=== PATIENT | male | born 1930 | race Caucasian/White ===

== ENCOUNTER 2018-06-29 11:59 | Inpatient (IN) | payer MEDICARE ==
[~2018-06-29] VITALS: Ht 167.6 cm; Wt 77.6 kg
[2018-06-29 12:06] VITALS: BP 118/55
--- NOTE | 2018-06-29 12:06 | NUR ---
ED Nurse Note: PT BROUGHT IN BY R41 DUE TO WITNESSED SYNCOPAL EPISODE X 30 MINS AGO. PER SON WHO WITNESSED SYNCOPAL EPISODE, PT DID NOT HAVE ANY HEAD TRAUMA. +LOC FOR ABOUT 4 MINS. Patient's son reports of guiding the patient down, denies any head trauma. patient's son witnessed the fall and states that the patient suffered weakness, Blood sugar of 157.
[2018-06-29 12:20] LABS: BASOPHILS % (AUTO) 0.6 % (0.0-2.0); EOSINOPHILS % (AUTO) 0.8 % (0.0-3.0); HEMATOCRIT 44.5 % (42.0-52.0); HEMOGLOBIN 14.8 G/DL (14.2-18.0); LYMPHOCYTES % (AUTO) 22.5 % (20.0-45.0); MEAN CORPUSCULAR VOLUME 86 FL (80-99); MONOCYTES % (AUTO) 5.2 % (1.0-10.0); NEUTROPHILS % (AUTO) 70.9 % (45.0-75.0); PLATELET COUNT 188 K/UL (150-450); RED CELL DISTRIBUTION WIDTH 13.4 % (11.6-14.8); WHITE BLOOD COUNT 8.8 K/UL (4.8-10.8)
--- NOTE | 2018-06-29 12:26 | NUR ---
ED Nurse Note: cxr taken, patient went down for CT.
[2018-06-29 12:33] LABS: INR 1.1 (0.9-1.1)
--- NOTE | 2018-06-29 12:39 | Diagnostic Imaging Report ---
Indication: Syncope Technique: One view of the chest Comparison: none Findings: A calcite granulomas seen at the right lung base. There is a massive hiatal hernia. The left hemidiaphragm is obscured. The lungs and pleural spaces are otherwise clear. The heart is enlarged Impression: Massive hiatal hernia Obscured left hemidiaphragm. This is likely due to the presence of a hiatal hernia, but pleural and/or parenchymal disease at the left lung base also possible. 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
[2018-06-29 12:49] LABS: ANION GAP 9 mmol/L (5-15); BLOOD UREA NITROGEN 25 mg/dL (7-18); CALCIUM 8.9 MG/DL (8.5-10.1); CARBON DIOXIDE 26 MMOL/L (21-32); CHLORIDE 102 MMOL/L (98-107); CREATININE 1.9 MG/DL (0.55-1.30); POTASSIUM 3.9 MMOL/L (3.5-5.1); SODIUM 137 MMOL/L (136-145)
[2018-06-29 13:03] LABS: ALANINE AMINOTRANSFERASE 26 U/L (12-78); ALBUMIN 3.4 G/DL (3.4-5.0); ALBUMIN/GLOBULIN RATIO 0.9 (1.0-2.7); ALKALINE PHOSPHATASE 56 U/L (46-116); ASPARTATE AMINO TRANSFERASE 22 U/L (15-37); BILIRUBIN,TOTAL 0.7 MG/DL (0.2-1.0); CKMB 2.2 NG/ML (0.0-3.6); CREATINE KINASE 91 U/L (26-308)
--- NOTE | 2018-06-29 13:20 | NUR ---
ED Nurse Note: urine sent down to lab
--- NOTE | 2018-06-29 13:23 | Diagnostic Imaging Report ---
Indications: Syncope Technique: Spiral acquisitions obtained through the brain. Angled axial and coronal 5 x 5 mm slices were reconstructed. Total dose length product 1407.76 mGycm. CTDI vol(s) 70.38 mGy. Dose reduction achieved using automated exposure control Comparison: None. Findings: There is age-related enlargement of the ventricles and extra axial CSF spaces. There is periventricular deep white matter low-attenuation, consistent with chronic ischemic change. Old lacunar infarct is seen within the manish the left of midline. There is also encephalomalacia of the left brachium pontis, consistent with old infarct No acute intracranial hemorrhage nor edema, mass effect, nor midline shift. Otherwise normal velasquez-white differentiation. There is evidence of prior bilateral cataract surgery. There is opacification of the left sphenoid sinus. Impression: Chronic and age-related changes. 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
[2018-06-29 13:25] LABS: APPEARANCE,URINE CLEAR; BILIRUBIN, URINE NEGATIVE (NEGATIVE); COLOR,URINE PALE YELLOW; GLUCOSE, URINE (UA) NEGATIVE (NEGATIVE); KETONES,URINE NEGATIVE (NEGATIVE); LEUKOCYTE ESTERASE ,URINE NEGATIVE (NEGATIVE); NITRITE,URINE NEGATIVE (NEGATIVE); PH,URINE 6 (4.5-8.0); PROTEIN,URINE 2+ (NEGATIVE); UROBILINOGEN,URINE NORMAL MG/DL (0.0-1.0)
[2018-06-29 13:37] VITALS: BP 161/57
[2018-06-29] MEDS ORDERED: LORazepam Inj 2mg/ml 1ml IV PRN (14:30)
[2018-06-29] MEDS ORDERED: Mylanta II UD 30ml ORAL PRN (14:30)
[2018-06-29] MEDS ORDERED: Morphine Sulfate 2mg/ml Inj(IV/IM USE ONLY) IVP PRN (14:30)
[2018-06-29] MEDS ORDERED: Nitroglycerin Subl 0.4mg tab SL PRN (14:30)
[2018-06-29] MEDS ORDERED: Albuterol/Ipratropium 3ml neb HHN PRN (14:30)
--- NOTE | 2018-06-29 14:41 | Emergency Room Report ---
History of Present Illness General Chief Complaint: Syncope Source: Patient Present Illness HPI 87-year-old male presents ED status post syncopal episode. Run in by EMS. Son at bedside states that he witnessed patient have syncopal episode while using walker. Assisted patient to the ground. There is no head injury. Patient was initially altered but is now at baseline. Patient denies any headache. Denies any chest pain or shortness of breath. Son states patient has history of A. fib. Takes Xarelto. Has recent diagnosis of Parkinson's. 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 No other aggravating relieving factors. Denies any other associated symptoms Allergies: Coded Allergies: No Known Allergies (Unverified , 06/29/18) Patient History Past Medical History: AFib, other - parkinsons Past Surgical History: none Pertinent Family History: none Social History: Denies: smoking, alcohol use, drug use Immunizations: UTD Reviewed Nursing Documentation: PMH: Agreed; PSxH: Agreed Nursing Documentation-PMH Past Medical History: No History, Except For Hx Cardiac Problems: Yes - A-FIB Hx Neurological Problems: Yes - PARKINSON'S Hx Cerebrovascular Accident: Yes - 2018 Review of Systems All Other Systems: negative except mentioned in HPI Physical Exam Vital Signs Date Time Temp Pulse Resp B/P (MAP) Pulse Ox O2 Delivery O2 Flow Rate FiO2 06/29/18 11:56 97.3 160 18 118/55 96 Room Air Sp02 EP Interpretation: reviewed, normal General Appearance: no apparent distress, alert, GCS 15, non-toxic Head: normocephalic, atraumatic Eyes: bilateral eye normal inspection, bilateral eye PERRL ENT: hearing grossly normal, normal pharynx, no angioedema, normal voice Neck: full range of motion, supple/symm/no masses Respiratory: chest non-tender, lungs clear, normal breath sounds, speaking full sentences Cardiovascular #1: regular rate, rhythm, no edema Cardiovascular #2: 2+ carotid (R), 2+ carotid (L), 2+ radial (R), 2+ radial (L) , 2+ dorsalis pedis (R), 2+ dorsalis pedis (L) Gastrointestinal: normal bowel sounds, non tender, soft, non-distended, no guarding, no rebound Rectal: deferred Genitourinary: normal inspection, no CVA tenderness Musculoskeletal: back normal, gait/station normal, normal range of motion, non- tender Neurologic: alert, oriented x3, responsive, motor strength/tone normal, sensory intact, speech normal Psychiatric: judgement/insight normal, memory normal, mood/affect normal, no suicidal/homicidal ideation Reflexes: 3+ bicep (R), 3+ bicep (L), 3+ tricep (R), 3+ tricep (L), 3+ knee (R) , 3+ knee (L) Skin: normal color, no rash, warm/dry, well hydrated Lymphatic: no adenopathy Medical Decision Making Diagnostic Impression: Primary Impression: Syncope Qualified Codes: R55 - Syncope and collapse Additional Impression: Renal insufficiency ER Course Hospital Course 87-year-old M presents ED s/p syncopal episode. Differential diagnoses include: IL/unstable angina, arrythmia, dehydration, CVA/ TIA Clinical course Patient placed on stretcher. 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 After initial history and physical I ordered labs, EKG, chest x-ray, IVFs, CT Brain labs reviewed- no leukocytosis, hemoglobin/hematocrit ok, BUN/Cr elevated, trop negative EKG- sinus bradycardia, LVH, repolarization abnormality Chest x-ray- no acute process CT brain-unremarkable discussed case with Dr. Chucky Falcon (cardiology) and Dr Dallas Sun ( neurology) at [facility] Case discussed with Dr. Sanders and he agreed to accept the patient to his service for further care and support I. I feel this is a highly complex case requiring extensive working including EKG/Rhythm strip, Xray/CT/US, Blood/urine lab work, repeat exams while in ED, and administration of strong opiates/narcotics for pain control, admission to hospital or close patient follow up. Diagnosis - syncope, renal insufficiency admitted to telemetry in serious condition Labs Test 06/29/18 12:00 06/29/18 13:12 White Blood Count 8.8 K/UL (4.8-10.8) Red Blood Count 5.20 M/UL (4.70-6.10) Hemoglobin 14.8 G/DL (14.2-18.0) Hematocrit 44.5 % (42.0-52.0) Mean Corpuscular Volume 86 FL (80-99) Mean Corpuscular Hemoglobin 28.5 PG (27.0-31.0) Mean Corpuscular Hemoglobin Concent 33.3 G/DL (32.0-36.0) Red Cell Distribution Width 13.4 % (11.6-14.8) Platelet Count 188 K/UL (150-450) Mean Platelet Volume 9.5 FL (6.5-10.1) Neutrophils (%) (Auto) 70.9 % (45.0-75.0) Lymphocytes (%) (Auto) 22.5 % (20.0-45.0) Monocytes (%) (Auto) 5.2 % (1.0-10.0) Eosinophils (%) (Auto) 0.8 % (0.0-3.0) Basophils (%) (Auto) 0.6 % (0.0-2.0) Prothrombin Time 11.4 SEC (9.30-11.50) Prothromb Time International Ratio 1.1 (0.9-1.1) Activated Partial Thromboplast Time 28 SEC (23-33) Sodium Level 137 MMOL/L (136-145) Potassium Level 3.9 MMOL/L (3.5-5.1) Chloride Level 102 MMOL/L (98-107) Carbon Dioxide Level 26 MMOL/L (21-32) Anion Gap 9 mmol/L (5-15) Blood Urea Nitrogen 25 mg/dL (7-18) Creatinine 1.9 MG/DL (0.55-1.30) Estimat Glomerular Filtration Rate mL/min (>60) Glucose Level 154 MG/DL (74-106) Calcium Level 8.9 MG/DL (8.5-10.1) Total Bilirubin 0.7 MG/DL (0.2-1.0) Aspartate Amino Transf (AST/SGOT) 22 U/L (15-37) Alanine Aminotransferase (ALT/SGPT) 26 U/L (12-78) Alkaline Phosphatase 56 U/L (46-116) Total Creatine Kinase 91 U/L (26-308) Creatine Kinase MB 2.2 NG/ML (0.0-3.6) Creatine Kinase MB Relative Index 2.4 Troponin I 0.018 ng/mL (0.000-0.056) Pro-B-Type Natriuretic Peptide 1604 pg/mL (0-125) Total Protein 7.2 G/DL (6.4-8.2) Albumin 3.4 G/DL (3.4-5.0) Globulin 3.8 g/dL Albumin/Globulin Ratio 0.9 (1.0-2.7) Urine Color Pale yellow Urine Appearance Clear Urine pH 6 (4.5-8.0) Urine Specific [place] 1.010 (1.005-1.035) Urine Protein 2+ (NEGATIVE) Urine Glucose (UA) Negative (NEGATIVE) Urine Ketones Negative (NEGATIVE) Urine Blood Negative (NEGATIVE) Urine Nitrite Negative (NEGATIVE) Urine Bilirubin Negative (NEGATIVE) Urine Urobilinogen Normal MG/DL (0.0-1.0) Urine Leukocyte Esterase Negative (NEGATIVE) Urine RBC 0-2 /HPF (0 - 0) Urine WBC 0-2 /HPF (0 - 0) Urine Squamous Epithelial Cells Occasional /LPF Urine Bacteria Occasional /HPF (NONE) Urine Hyaline Casts 0-2 /LPF (NONE) Urine Coarse Granular Casts 0-2 /LPF (NONE) EKG Diagnostic Results Rate: normal Rhythm: NSR ST Segments: no acute changes ASA given to the pt in ED: No Rhythm Strip Diag. Results EP Interpretation: yes Rhythm: NSR, no PVC's, no ectopy Chest X-Ray Diagnostic Results Chest X-Ray Diagnostic Results : Chest X-Ray Ordered: Yes # of Views/Limited/Complete: 1 View Indication: Other Interpretation: no consolidation, no effusion, no pneumothorax, no acute cardiopulmonary disease Impression: No acute disease - Electronically signed by Shamir Rodriguez MD Electronically Signed by: Electronically signed by Shamir Rodriguez MD CT/MRI/US Diagnostic Results CT/MRI/US Diagnostic Results : Imaging Test Ordered: CT Head Impression no acute process Last Vital Signs Date Time Temp Pulse Resp B/P (MAP) Pulse Ox O2 Delivery O2 Flow Rate FiO2 06/29/18 13:37 97.3 51 18 161/57 99 Room Air Status: improved Disposition: ADMITTED INPATIENT Condition: Serious Referrals: NON PHYSICIAN (PCP) Shamir Rodriguez MD Jun 29, 2018 14:41
[2018-06-29] MEDS ORDERED: SINEMET 25-1001 EAC1 ORAL (14:45)
[2018-06-29] MEDS ORDERED: BYSTOLIC2.5 MG ORAL (14:45)
[2018-06-29] MEDS ORDERED: MIRTAZAPINE15 M3 ORAL (14:45)
[2018-06-29] MEDS ORDERED: METOCLOPRA10 MG/10 M ORAL (14:45)
[2018-06-29] MEDS ORDERED: CATAPRES0.1 MG ORAL (14:45)
[2018-06-29] MEDS ORDERED: LOSARTAN POTASS50 MG ORAL (14:45)
[2018-06-29] MEDS ORDERED: CRESTOR20 MG ORAL (14:46)
[2018-06-29] MEDS ORDERED: NEXIUM40 MG ORAL (14:46)
[2018-06-29] MEDS ORDERED: XARELTO10 MG ORAL (14:46)
--- NOTE | 2018-06-29 14:50 | NUR ---
ED Nurse Note: attempted to give report to Bladimir GLOVER at 2E, nurse unable to take the report because the nurse still has 4 patients.
--- NOTE | 2018-06-29 15:41 | Consultation ---
History of Present Illness General Date patient seen: Jun 29, 2018 Chief Complaint: Syncope Present Illness HPI 87-year-old male with hx of AFib, on Xarelto, Parkinson presented to ED aften an episode of syncopal episode. Pts son on at bedside stated that he witnessed patient have syncopal episode while using walker. Assisted patient to the ground. There is no head injury. Patient was initially altered but is now at baseline. Patient denies any headache. Denies any chest pain or shortness of breath. Pt is admitted to telemetry for further management. Allergies: Coded Allergies: No Known Allergies (Unverified , 06/29/18) Medication History Scheduled Carbidopa/Levodopa 25-100 Mg* (Sinemet 25-100 Mg Tablet*), 1 TAB ORAL THREE TIMES A DAY, (Reported) Clonidine Hcl* (Catapres*), 0.1 MG ORAL EVERY 12 HOURS, (Reported) Esomeprazole Magnesium (Nexium), 40 MG ORAL DAILY, (Reported) Losartan Potassium* (Losartan Potassium*), 50 MG ORAL DAILY, (Reported) Metoclopramide Hcl* (Metoclopramide Hcl*), 10 MG ORAL EVERY 6 HOURS, (Reported) Mirtazapine* (Mirtazapine*), 15 MG ORAL BEDTIME, (Reported) Nebivolol Hcl* (Bystolic*), 5 MG ORAL DAILY, (Reported) Rivaroxaban (Xarelto*), 15 MG ORAL DAILY, (Reported) Rosuvastatin Calcium* (Crestor*), 20 MG ORAL DAILY, (Reported) Patient History Healthcare decision maker Resuscitation status Advanced Directive on File Past Medical/Surgical History Past Medical/Surgical History: (1) Chronic anticoagulation (2) Parkinson disease (3) Cardiomegaly Review of Systems All Other Systems: negative except mentioned in HPI Physical Exam General Appearance: WD/WN Lines, tubes and drains: peripheral HEENT: normocephalic, atraumatic Neck: non-tender, normal alignment Breasts: no masses Cardiovascular/Chest: normal peripheral pulses Abdomen: normal bowel sounds, non tender Genitourinary/Rectal: normal genital exam Extremities: normal range of motion, non-tender Skin Exam: normal pigmentation 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 Last 24 Hour Vital Signs Date Time Temp Pulse Resp B/P (MAP) Pulse Ox O2 Delivery O2 Flow Rate FiO2 06/29/18 13:37 97.3 51 18 161/57 99 Room Air 06/29/18 12:06 97.3 56 18 118/55 96 Room Air 06/29/18 11:56 97.3 160 18 118/55 96 Room Air Laboratory Tests Test 06/29/18 12:00 06/29/18 13:12 White Blood Count 8.8 K/UL (4.8-10.8) Red Blood Count 5.20 M/UL (4.70-6.10) Hemoglobin 14.8 G/DL (14.2-18.0) Hematocrit 44.5 % (42.0-52.0) Mean Corpuscular Volume 86 FL (80-99) Mean Corpuscular Hemoglobin 28.5 PG (27.0-31.0) Mean Corpuscular Hemoglobin Concent 33.3 G/DL (32.0-36.0) Red Cell Distribution Width 13.4 % (11.6-14.8) Platelet Count 188 K/UL (150-450) Mean Platelet Volume 9.5 FL (6.5-10.1) Neutrophils (%) (Auto) 70.9 % (45.0-75.0) Lymphocytes (%) (Auto) 22.5 % (20.0-45.0) Monocytes (%) (Auto) 5.2 % (1.0-10.0) Eosinophils (%) (Auto) 0.8 % (0.0-3.0) Basophils (%) (Auto) 0.6 % (0.0-2.0) Prothrombin Time 11.4 SEC (9.30-11.50) Prothromb Time International Ratio 1.1 (0.9-1.1) Activated Partial Thromboplast Time 28 SEC (23-33) Sodium Level 137 MMOL/L (136-145) Potassium Level 3.9 MMOL/L (3.5-5.1) Chloride Level 102 MMOL/L (98-107) Carbon Dioxide Level 26 MMOL/L (21-32) Anion Gap 9 mmol/L (5-15) Blood Urea Nitrogen 25 mg/dL (7-18) H Creatinine 1.9 MG/DL (0.55-1.30) H Estimat Glomerular Filtration Rate mL/min (>60) Glucose Level 154 MG/DL (74-106) H Calcium Level 8.9 MG/DL (8.5-10.1) Total Bilirubin 0.7 MG/DL (0.2-1.0) Aspartate Amino Transf (AST/SGOT) 22 U/L (15-37) Alanine Aminotransferase (ALT/SGPT) 26 U/L (12-78) Alkaline Phosphatase 56 U/L (46-116) Total Creatine Kinase 91 U/L (26-308) Creatine Kinase MB 2.2 NG/ML (0.0-3.6) Creatine Kinase MB Relative Index 2.4 Troponin I 0.018 ng/mL (0.000-0.056) Pro-B-Type Natriuretic Peptide 1604 pg/mL (0-125) H Total Protein 7.2 G/DL (6.4-8.2) Albumin 3.4 G/DL (3.4-5.0) Globulin 3.8 g/dL Albumin/Globulin Ratio 0.9 (1.0-2.7) L Urine Color Pale yellow Urine Appearance Clear Urine pH 6 (4.5-8.0) Urine Specific [place] 1.010 (1.005-1.035) Urine Protein 2+ (NEGATIVE) H Urine Glucose (UA) Negative (NEGATIVE) Urine Ketones Negative (NEGATIVE) Urine Blood Negative (NEGATIVE) Urine Nitrite Negative (NEGATIVE) Urine Bilirubin Negative (NEGATIVE) Urine Urobilinogen Normal MG/DL (0.0-1.0) Urine Leukocyte Esterase Negative (NEGATIVE) Urine RBC 0-2 /HPF (0 - 0) H Urine WBC 0-2 /HPF (0 - 0) Urine Squamous Epithelial Cells Occasional /LPF Urine Bacteria Occasional /HPF (NONE) Urine Hyaline Casts 0-2 /LPF (NONE) H Urine Coarse Granular Casts 0-2 /LPF (NONE) H Height (Feet): 5 Height (Inches): 9.00 Weight (Pounds): 170 Medications Current Medications Medications (Trade) Dose Ordered Sig/Sunni Route PRN Reason Start Time Stop Time Status Last Admin Dose Admin Acetaminophen (Tylenol) 650 mg Q4H PRN ORAL fever 06/29/18 14:30 07/29/18 14:29 Al Hydroxide/Mg Hydroxide (Mylanta II) 30 ml Q6H PRN ORAL dyspepsia 06/29/18 14:30 07/29/18 14:29 Albuterol/ Ipratropium (Albuterol/ Ipratropium) 3 ml Q4H PRN HHN Shortness of Breath 06/29/18 14:30 07/04/18 14:29 Clonidine HCl (Catapres Tab) 0.1 mg Q4H PRN ORAL For High Blood Pressure 06/29/18 14:30 07/29/18 14:29 Dextrose (Dextrose 50%) 25 ml Q30M PRN IV Hypoglycemia 06/29/18 14:30 07/29/18 14:29 Dextrose (Dextrose 50%) 50 ml Q30M PRN IV Hypoglycemia 06/29/18 14:30 07/29/18 14:29 Heparin Sodium (Porcine) (Heparin 5000 units/ml) 5,000 units EVERY 12 HOURS SUBQ 06/29/18 21:00 07/29/18 20:59 Lorazepam (Ativan 2mg/ml 1ml) 0.5 mg Q4H PRN IV For Anxiety 06/29/18 14:30 07/06/18 14:29 Morphine Sulfate (Morphine Sulfate) 1 mg Q4H PRN IVP For Pain 7-06/29/18 14:30 07/06/18 14:29 Nitroglycerin (Ntg) 0.4 mg Q5M X 3 DOSES PRN SL Prn Chest Pain 06/29/18 14:30 07/29/18 14:29 Ondansetron HCl (Zofran) 4 mg Q6H PRN IVP Nausea & Vomiting 06/29/18 14:30 07/29/18 14:29 Polyethylene Glycol (Miralax) 17 gm HSPRN PRN ORAL Constipation 06/29/18 14:30 07/29/18 14:29 Temazepam (Restoril) 15 mg HSPRN PRN ORAL Insomnia 06/29/18 14:30 07/06/18 14:29 Assessment/Plan Problem List: (1) Acute encephalopathy ICD Codes: G93.40 - Encephalopathy, unspecified SNOMED: 64278145, 443560158 (2) ATN (acute tubular necrosis) ICD Codes: N17.0 - Acute kidney failure with tubular necrosis SNOMED: 53357807 (3) Cardiomegaly ICD Codes: I51.7 - Cardiomegaly SNOMED: 5640721 (4) Parkinson disease ICD Codes: G20 - Parkinson's disease SNOMED: 36968281 (5) Chronic anticoagulation ICD 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 Petey De La Torre MD Jun 29, 2018 15:41
--- NOTE | 2018-06-29 15:48 | NUR ---
ED Nurse Note: patient is being transferred to with all his belonings, his at his new room, 209-1. Endorsed all care to Bladimir GLOVER
--- NOTE | 2018-06-29 15:50 | NUR ---
NURSE NOTES: Received report from BELEN Spears. Patient transferred from ER with Dejuan, able to walk to hospital bed. Belonging list checked with RN, registered nurse cardiac on, IV on right AC 18G, asymptomatic, patent, intact. Brathing unlabored in Room air. Bed in lowest position, side rails upx2, call light and bes side table within reach. Will continue to monitor.
[2018-06-29 16:00] VITALS: BP 129/65
--- NOTE | 2018-06-29 17:27 | History & Physical ---
History and Physical History & Physicial Dictated for Int Med-Dr Sadners no. [id number]. Jason Mendez MD Jun 29, 2018 17:27
[2018-06-29 17:30] LABS: CREATINE KINASE 74 U/L (26-308)
--- NOTE | 2018-06-29 18:29 | Cardiac Electrophysiology PN ---
Subjective Subjective [id number] Objective Last 24 Hour Vital Signs Date Time Temp Pulse Resp B/P (MAP) Pulse Ox O2 Delivery O2 Flow Rate FiO2 06/29/18 16:00 97.1 60 18 129/65 (86) 95 06/29/18 15:49 97.3 51 18 161/57 99 Room Air 06/29/18 15:30 Room Air 06/29/18 13:37 97.3 51 18 161/57 99 Room Air 06/29/18 12:06 97.3 56 18 118/55 96 Room Air 06/29/18 11:56 97.3 160 18 118/55 96 Room Air Laboratory Tests Test 06/29/18 12:00 06/29/18 13:12 06/29/18 16:50 White Blood Count 8.8 K/UL (4.8-10.8) Red Blood Count 5.20 M/UL (4.70-6.10) Hemoglobin 14.8 G/DL (14.2-18.0) Hematocrit 44.5 % (42.0-52.0) Mean Corpuscular Volume 86 FL (80-99) Mean Corpuscular Hemoglobin 28.5 PG (27.0-31.0) Mean Corpuscular Hemoglobin Concent 33.3 G/DL (32.0-36.0) Red Cell Distribution Width 13.4 % (11.6-14.8) Platelet Count 188 K/UL (150-450) Mean Platelet Volume 9.5 FL (6.5-10.1) Neutrophils (%) (Auto) 70.9 % (45.0-75.0) Lymphocytes (%) (Auto) 22.5 % (20.0-45.0) Monocytes (%) (Auto) 5.2 % (1.0-10.0) Eosinophils (%) (Auto) 0.8 % (0.0-3.0) Basophils (%) (Auto) 0.6 % (0.0-2.0) Prothrombin Time 11.4 SEC (9.30-11.50) Prothromb Time International Ratio 1.1 (0.9-1.1) Activated Partial Thromboplast Time 28 SEC (23-33) Sodium Level 137 MMOL/L (136-145) Potassium Level 3.9 MMOL/L (3.5-5.1) Chloride Level 102 MMOL/L (98-107) Carbon Dioxide Level 26 MMOL/L (21-32) Anion Gap 9 mmol/L (5-15) Blood Urea Nitrogen 25 mg/dL (7-18) H Creatinine 1.9 MG/DL (0.55-1.30) H Estimat Glomerular Filtration Rate mL/min (>60) Glucose Level 154 MG/DL (74-106) H Calcium Level 8.9 MG/DL (8.5-10.1) Total Bilirubin 0.7 MG/DL (0.2-1.0) Aspartate Amino Transf (AST/SGOT) 22 U/L (15-37) Alanine Aminotransferase (ALT/SGPT) 26 U/L (12-78) Alkaline Phosphatase 56 U/L (46-116) Total Creatine Kinase 91 U/L (26-308) 74 U/L (26-308) Creatine Kinase MB 2.2 NG/ML (0.0-3.6) Creatine Kinase MB Relative Index 2.4 Troponin I 0.018 ng/mL (0.000-0.056) Pro-B-Type Natriuretic Peptide 1604 pg/mL (0-125) H Total Protein 7.2 G/DL (6.4-8.2) Albumin 3.4 G/DL (3.4-5.0) Globulin 3.8 g/dL Albumin/Globulin Ratio 0.9 (1.0-2.7) L Urine Color Pale yellow Urine Appearance Clear Urine pH 6 (4.5-8.0) Urine Specific [place] 1.010 (1.005-1.035) Urine Protein 2+ (NEGATIVE) H Urine Glucose (UA) Negative (NEGATIVE) Urine Ketones Negative (NEGATIVE) Urine Blood Negative (NEGATIVE) Urine Nitrite Negative (NEGATIVE) Urine Bilirubin Negative (NEGATIVE) Urine Urobilinogen Normal MG/DL (0.0-1.0) Urine Leukocyte Esterase Negative (NEGATIVE) Urine RBC 0-2 /HPF (0 - 0) H Urine WBC 0-2 /HPF (0 - 0) Urine Squamous Epithelial Cells Occasional /LPF Urine Bacteria Occasional /HPF (NONE) Urine Hyaline Casts 0-2 /LPF (NONE) H Urine Coarse Granular Casts 0-2 /LPF (NONE) H Uric Acid 4.8 MG/DL (2.6-7.2) Christiano Javier MD Jun 29, 2018 18:29
[2018-06-29] MEDS: Levodopa/Carbidopa 25/100 tab ORAL SCH (18:45)
--- NOTE | 2018-06-29 19:15 | NUR ---
HAND-OFF: Report given to BELEN Espino.
--- NOTE | 2018-06-29 20:00 | NUR ---
NURSE NOTES: Report received from Jd GLOVER. Patient is observed in bed, awake, alert, oriented, and able to make needs known. Respiratory even and unlabored. Patient denies pain. IV site is asymptomatic, patent, and intact. Bed is in lowest position with side rails up x2 and brakes are engaged. Encouraged patient to use call light. Urinal and call light within reach. Will continue to monitor.
[2018-06-29 20:03] VITALS: BP 155/78
--- NOTE | 2018-06-29 20:31 | History and Physical Report ---
DATE OF ADMISSION: 06/29/2018 CHIEF COMPLAINT: The patient is an 87-year-old white male who presents with a chief complaint of "I passed out." HISTORY OF PRESENT ILLNESS: The patient states he was at home this morning with his . The patient got up from the breakfast table. The patient felt lightheaded. The patient then passed out. This was witnessed by his who is at the bedside. The patient's states he was unconscious for 1 to 2 minutes. The patient presented to [place] emergency room. The patient is admitted with syncopal episode to rule out acute cerebrovascular accident versus acute myocardial infarction. REVIEW OF SYSTEMS: CONSTITUTIONAL: The patient denies weight loss or weight gain. The patient denies fevers or chills. HEENT: The patient denies ear or throat pain. The patient denies headache. CARDIOVASCULAR: The patient denies palpitations or chest pain. CHEST: The patient denies wheeze or shortness of breath. ABDOMINAL: The patient denies nausea, vomiting, diarrhea, or constipation. GENITOURINARY: The patient denies dysuria or increased frequency of urination. NEUROMUSCULAR: The patient complains of syncopal episode as above. The patient denies seizures or generalized weakness. PAST MEDICAL HISTORY: Significant for: 1. Hypertension. 2. Parkinson disease. 3. Colon cancer, status post resection. PAST SURGICAL HISTORY: Significant for: 1. Appendectomy. 2. Sigmoidectomy secondary to colon cancer as above in 2009. CURRENT MEDICATIONS: 1. Sinemet 25/100 one tablet p.o. 3 times daily. 2. Clonidine 0.1 mg p.o. twice daily. 3. Nexium 40 mg p.o. daily. 4. Losartan 50 mg p.o. daily. 5. Mirtazapine 50 mg p.o. at bedtime. 6. Bystolic 5 mg p.o. daily. 7. Xarelto 15 mg p.o. daily. 8. Rosuvastatin 20 mg p.o. daily. ALLERGIES: No known drug allergies. SOCIAL HISTORY: The patient is . The patient denies tobacco or alcohol use. PHYSICAL EXAMINATION: VITAL SIGNS: Temperature 97.3, respirations 18, pulse 56 to 160, blood pressure 118/55. GENERAL: The patient is well-developed, well-nourished white male, in no apparent distress. HEENT: Eyes, pupils are equal and responsive to light and accommodation. Extraocular movements are intact. NECK: Supple without lymphadenopathy. CHEST: Lungs are clear to auscultation bilaterally without wheezes or rales. CARDIOVASCULAR: Regular rate. S1-S2 are normal without murmurs, rubs, or gallops. ABDOMEN: Soft, nontender, nondistended. Positive bowel sounds. No evidence of hepatosplenomegaly. Currently, no rebound or guarding noted. EXTREMITIES: Negative for clubbing, cyanosis, or edema. RECTAL/GENITAL: Refused. NEUROLOGIC: Cranial II through XII are grossly intact without focal deficits. Motor strength is 5/5 bilaterally. Deep tendon reflexes are 2+ plantar. DIAGNOSTIC AND LABORATORY DATA: An EKG demonstrated sinus bradycardia at approximately 56 beats per minute. There are no acute ST changes or Q-waves noted. Laboratory studies, WBC 8.8, hemoglobin 14.8, hematocrit 44.5, platelets 188,000. Sodium 137, potassium 3.9, chloride 102, CO2 26, BUN 25, creatinine 1.9, glucose 154. BNP elevated at 1604. Troponin 0.018. 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 ASSESSMENT: This is an 87-year-old white male. 1. Syncopal episode. 2. Bradycardia. 3. Hypertension. 4. Parkinson disease. 5. Hypercholesterolemia. TREATMENT: 1. Syncopal episode. A Cardiology consultation is pending with Dr. Delarosa. We will follow recommendations of Cardiology. 2. Hypertension. Continue Bystolic as above. 3. Parkinson disease. Continue Sinemet as above. 4. Hypercholesteremia. Continue rosuvastatin as above. Jason Mendez M.D. DR: TREY JOB#: [id number] CC:
[2018-06-29] MEDS ORDERED: Heparin 5000 units/ml inj SUBQ SCH (21:00)
--- NOTE | 2018-06-30 | NUR ---
NURSE NOTES: Patient is asleep but arousable by voice. Denies pain at this time. VSS. Assisted patient to the restroom. Will continue to monitor.
[2018-06-30 00:13] LABS: APPEARANCE,URINE CLEAR; BILIRUBIN, URINE NEGATIVE (NEGATIVE); COLOR,URINE PALE YELLOW; GLUCOSE, URINE (UA) NEGATIVE (NEGATIVE); KETONES,URINE NEGATIVE (NEGATIVE); LEUKOCYTE ESTERASE ,URINE NEGATIVE (NEGATIVE); NITRITE,URINE NEGATIVE (NEGATIVE); PH,URINE 6 (4.5-8.0); PROTEIN,URINE 1+ (NEGATIVE); UROBILINOGEN,URINE NORMAL MG/DL (0.0-1.0)
--- NOTE | 2018-06-30 00:31 | Consultation ---
DATE OF CONSULTATION: 06/29/2018 CARDIOLOGY CONSULTATION CONSULTING PHYSICIAN: Christiano Javier M.D. REFERRING PHYSICIAN: Billy Sanders M.D. REASON FOR CONSULTATION: Bradycardia and syncope. HISTORY OF PRESENT ILLNESS: The patient is an 87-year-old [place] gentleman with history of hypertension and paroxysmal atrial fibrillation as well as Parkinson's and history of CVA in 2018, who presented to the emergency room after he had syncopal episodes. The patient has had witnessed episode and had syncopal episode while he was using a walker. The patient was assisted to ground. There is no head injury. The patient initially was altered, but now he is at the baseline. The patient is on Xarelto for atrial fibrillation. REVIEW OF SYSTEMS: Negative other than what was mentioned in the history of present illness. PAST MEDICAL HISTORY: 1. Hypertension. 2. Paroxysmal atrial fibrillation. 3. Parkinson's. 4. CVA in 2018. FAMILY HISTORY: Noncontributory. SOCIAL HISTORY: He lives at home. Does not smoke or drink alcohol. PHYSICAL EXAMINATION: VITAL SIGNS: Blood pressure is 129/65, pulse is 60, respirations 18, and he is afebrile. His heart rate initially was in the 50s. HEAD AND NECK: Showed no JVD. LUNGS: Clear. CARDIOVASCULAR: Bradycardic, S1 and S2 with no gallop or murmur. ABDOMEN: Soft. EXTREMITIES: No pitting edema. LABORATORY AND DIAGNOSTIC DATA: His labs show white count of 8.8, hemoglobin 14.9, hematocrit 44.5, and platelet count 188,000. Sodium 137, potassium 3.9, BUN of 25, creatinine 1.9, and glucose 154. Troponin is negative. BNP 64. INR is 1.1. ASSESSMENT AND PLAN: 1. Syncope in the patient with bradycardia. The patient is not critically bradycardic in the hospital with heart rate in . Watch the patient on telemetry. The patient has history of paroxysmal atrial fibrillation. He is at risk of having sick sinus syndrome. We will get an echocardiogram for further evaluation. 2. Paroxysmal atrial fibrillation, on Xarelto 15 mg daily. I will discontinue Bystolic at this time to prevent further bradycardic episodes. 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 3. Parkinson disease. 4. History of prior CVA. 5. Renal failure. Creatinine 1.9. Thank you very much, Dr. Sanders, for allowing me to participate in the care of this patient. Please do not hesitate to contact me for any questions regarding my evaluation. Christiano Javier M.D. DR: AUDRA JOB#: [id number] CC:
[2018-06-30 00:32] VITALS: BP 154/54
[2018-06-30 04:00] VITALS: BP 158/85
[2018-06-30 08:00] VITALS: BP 147/74
--- NOTE | 2018-06-30 08:06 | NUR ---
HAND-OFF: Report given to Jd. Patient is in stable condition. Endorsed plan of care.
--- NOTE | 2018-06-30 08:07 | NUR ---
NURSE NOTES: eport received from BELEN Espino. Patient is observed in bed, awake, alert, oriented, and able to make needs known. Respiratory even and unlabored in room air. Patient denies pain. IV site is asymptomatic, patent, and intact. Bed is in lowest position with side rails up x2 and brakes are engaged. Urinal, call light and bed side table within reach within reach. Will continue to monitor.
[2018-06-30] MEDS: Levodopa/Carbidopa 25/100 tab ORAL SCH ×3 (08:29→17:08)
[2018-06-30] MEDS: Xarelto 15mg tab ORAL SCH (08:29)
--- NOTE | 2018-06-30 08:52 | NUR ---
CASE MANAGEMENT:REVIEW 87 YR OLD FEMALE BIBA FROM HOME CC: WITNESSED SYNCOPAL EPISODE W/LOC SI: SYNCOPE. RENAL INSUFFICIENCY 97.4 160 18 118/55 96% ON RA BUN+25 CR+1/9 BNP+1604 IS: 500CC NS BOLUS CT HEAD CXR : TO TELEMETRY PLAN: 2DECHO CAROTID DUPLEX PT EVAL
[2018-06-30] MEDS ORDERED: Bystolic 2.5mg Tab ORAL SCH (09:00)
[2018-06-30 10:04] LABS: BASOPHILS % (AUTO) 0.9 % (0.0-2.0); EOSINOPHILS % (AUTO) 0.9 % (0.0-3.0); HEMATOCRIT 44.7 % (42.0-52.0); LYMPHOCYTES % (AUTO) 14.1 % (20.0-45.0); MEAN CORPUSCULAR VOLUME 86 FL (80-99); MONOCYTES % (AUTO) 6.8 % (1.0-10.0); NEUTROPHILS % (AUTO) 77.4 % (45.0-75.0); PLATELET COUNT 191 K/UL (150-450); RED BLOOD COUNT 5.21 M/UL (4.70-6.10); RED CELL DISTRIBUTION WIDTH 13.6 % (11.6-14.8); WHITE BLOOD COUNT 8.2 K/UL (4.8-10.8)
[2018-06-30 10:17] LABS: INR 1.3 (0.9-1.1)
[2018-06-30 10:51] LABS: ALANINE AMINOTRANSFERASE 18 U/L (12-78); ALBUMIN 3.3 G/DL (3.4-5.0); ALBUMIN/GLOBULIN RATIO 0.8 (1.0-2.7); ALKALINE PHOSPHATASE 55 U/L (46-116); ANION GAP 11 mmol/L (5-15); ASPARTATE AMINO TRANSFERASE 20 U/L (15-37); BILIRUBIN,TOTAL 0.5 MG/DL (0.2-1.0); BLOOD UREA NITROGEN 25 mg/dL (7-18); CALCIUM 9.1 MG/DL (8.5-10.1); CARBON DIOXIDE 26 MMOL/L (21-32); CHLORIDE 105 MMOL/L (98-107); CHOLESTEROL 136 MG/DL (< 200); CREATININE 1.5 MG/DL (0.55-1.30); HDL CHOLESTEROL 69 MG/DL (40-60); POTASSIUM 3.4 MMOL/L (3.5-5.1); SODIUM 142 MMOL/L (136-145); TRIGLYCERIDES 65 MG/DL (30-150)
--- NOTE | 2018-06-30 11:00 | NUR ---
NURSE NOTES: DR. De La Torre gave me the order KCL 40 meq for low potassium level.
--- NOTE | 2018-06-30 11:37 | NUR ---
P.T Note: P.T evaluation completed and treatment initiated. Please refer to P.T evaluation for current functional status. Pt is alert, O x 4 and cooperative. Pt is limited mostly by generalized affecting balance and overall functional mobilities. Pt currently require MIN A X 1 for bed mobilities, transfers and gait/ambulation activities using the FWW. Skilled P.T service is warranted to improve strength, balance and endurance to improve functional mobility independence and safety during stay. Recommend home P.T at [place] .
[2018-06-30 12:00] VITALS: BP 154/102
--- NOTE | 2018-06-30 13:19 | Cardiology Report ---
APPROVED REPORT EKG Measurement Heart [id number] SD [id number] Sinus bradycardia Left ventricular hypertrophy with repolarization abnormality Abnormal ECG
[2018-06-30 16:00] VITALS: BP 163/85
--- NOTE | 2018-06-30 16:52 | Cardiac Electrophysiology PN ---
Assessment/Plan Assessment/Plan 1. Syncope in the patient with bradycardia. The patient is not critically bradycardic in the hospital with heart rate in 50s. The patient has history of paroxysmal atrial fibrillation. He is at risk of having sick sinus syndrome. Now off Bystolic EF 55% 2. Paroxysmal atrial fibrillation, on Xarelto 15 mg daily. 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 3. Parkinson disease. 4. History of prior CVA. 5. Renal failure. Creatinine 1.9 improved to 1.5. Subjective Subjective Feeling better. No CP. Mild bradycardia Objective Last 24 Hour Vital Signs Date Time Temp Pulse Resp B/P (MAP) Pulse Ox O2 Delivery O2 Flow Rate FiO2 06/30/18 12:00 98.4 56 20 154/102 (119) 95 06/30/18 12:00 52 06/30/18 09:00 Room Air 06/30/18 08:00 68 06/30/18 08:00 98.5 66 20 147/74 (98) 95 06/30/18 04:00 97.0 48 20 158/85 (109) 96 06/30/18 03:53 46 06/30/18 00:32 98.0 51 20 154/54 (87) 96 06/29/18 23:47 53 06/29/18 23:14 Room Air 06/29/18 20:03 98.0 54 20 155/78 (103) 95 06/29/18 19:03 52 Intake and Output 06/29/18 06/30/18 19:00 07:00 Intake Total 120 ml Output Total 250 ml Balance 120 ml -250 ml Intake Oral 120 ml Output Urine Total 250 ml # Bowel Movements 1 1 Laboratory Tests Test 06/29/18 16:50 06/29/18 23:30 06/30/18 09:50 Uric Acid 4.8 MG/DL (2.6-7.2) Total Creatine Kinase 74 U/L (26-308) Urine Color Pale yellow Urine Appearance Clear Urine pH 6 (4.5-8.0) Urine Specific [place] 1.015 (1.005-1.035) Urine Protein 1+ (NEGATIVE) H Urine Glucose (UA) Negative (NEGATIVE) Urine Ketones Negative (NEGATIVE) Urine Blood Negative (NEGATIVE) Urine Nitrite Negative (NEGATIVE) Urine Bilirubin Negative (NEGATIVE) Urine Urobilinogen Normal MG/DL (0.0-1.0) Urine Leukocyte Esterase Negative (NEGATIVE) Urine RBC 0-2 /HPF (0 - 0) H Urine WBC 0-2 /HPF (0 - 0) Urine Squamous Epithelial Cells Occasional /LPF Urine Bacteria Occasional /HPF (NONE) Urine Hyaline Casts 0-2 /LPF (NONE) H Urine Eosinophils None seen (NONE SEEN) Urine Random Creatinine Pending Urine Random Microalbumin Pending Urine Random Sodium 54 mmol/L (20-110) Urine Creatinine 118.9 MG/DL (30.0-125.0) Urine Microalbumin/Creatinine Ratio Pending Urine Potassium Timed 37 mmol/L (12-62) White Blood Count 8.2 K/UL (4.8-10.8) Red Blood Count 5.21 M/UL (4.70-6.10) Hemoglobin 15.0 G/DL (14.2-18.0) Hematocrit 44.7 % (42.0-52.0) Mean Corpuscular Volume 86 FL (80-99) Mean Corpuscular Hemoglobin 28.8 PG (27.0-31.0) Mean Corpuscular Hemoglobin Concent 33.6 G/DL (32.0-36.0) Red Cell Distribution Width 13.6 % (11.6-14.8) Platelet Count 191 K/UL (150-450) Mean Platelet Volume 9.9 FL (6.5-10.1) Neutrophils (%) (Auto) 77.4 % (45.0-75.0) H Lymphocytes (%) (Auto) 14.1 % (20.0-45.0) L Monocytes (%) (Auto) 6.8 % (1.0-10.0) Eosinophils (%) (Auto) 0.9 % (0.0-3.0) Basophils (%) (Auto) 0.9 % (0.0-2.0) Prothrombin Time 13.4 SEC (9.30-11.50) H Prothromb Time International Ratio 1.3 (0.9-1.1) H Activated Partial Thromboplast Time 34 SEC (23-33) H Sodium Level 142 MMOL/L (136-145) Potassium Level 3.4 MMOL/L (3.5-5.1) L Chloride Level 105 MMOL/L (98-107) Carbon Dioxide Level 26 MMOL/L (21-32) Anion Gap 11 mmol/L (5-15) Blood Urea Nitrogen 25 mg/dL (7-18) H Creatinine 1.5 MG/DL (0.55-1.30) H Estimat Glomerular Filtration Rate mL/min (>60) Glucose Level 98 MG/DL (74-106) Calcium Level 9.1 MG/DL (8.5-10.1) Total Bilirubin 0.5 MG/DL (0.2-1.0) Aspartate Amino Transf (AST/SGOT) 20 U/L (15-37) Alanine Aminotransferase (ALT/SGPT) 18 U/L (12-78) Alkaline Phosphatase 55 U/L (46-116) Troponin I 0.012 ng/mL (0.000-0.056) Pro-B-Type Natriuretic Peptide 827 pg/mL (0-125) H Total Protein 7.3 G/DL (6.4-8.2) Albumin 3.3 G/DL (3.4-5.0) L Globulin 4.0 g/dL Albumin/Globulin Ratio 0.8 (1.0-2.7) L Triglycerides Level 65 MG/DL (30-150) Cholesterol Level 136 MG/DL (< 200) LDL Cholesterol 51 mg/dL (<100) HDL Cholesterol 69 MG/DL (40-60) H Cholesterol/HDL Ratio 2.0 (3.3-4.4) L Thyroid Stimulating Hormone (TSH) 0.513 uiU/mL (0.358-3.740) Free Thyroxine 1.08 NG/DL (0.76-1.46) Objective HEAD AND NECK: N no JVD. LUNGS: Clear. CARDIOVASCULAR: Bradycardic, S1 and S2 with no gallop or murmur. ABDOMEN: Soft. EXTREMITIES: No pitting edema. Christiano Javier MD Jun 30, 2018 16:52
--- NOTE | 2018-06-30 16:56 | Internal Med Progress Note ---
Subjective Physician Name Billy Sanders Attending Physician Billy Sanders MD Current Medications Medications (Trade) Dose Ordered Sig/S[place] Route PRN Reason Start Time Stop Time Status Last Admin Dose Admin Acetaminophen (Tylenol) 650 mg Q4H PRN ORAL fever 06/29/18 14:30 07/29/18 14:29 Al Hydroxide/Mg Hydroxide (Mylanta II) 30 ml Q6H PRN ORAL dyspepsia 06/29/18 14:30 07/29/18 14:29 Albuterol/ Ipratropium (Albuterol/ Ipratropium) 3 ml Q4H PRN HHN Shortness of Breath 06/29/18 14:30 07/04/18 14:29 Carbidopa/Levodopa (Sinemet 25/100) 1 tab THREE TIMES A DAY ORAL 06/29/18 18:00 07/29/18 17:59 06/30/18 13:13 Clonidine HCl (Catapres Tab) 0.1 mg Q4H PRN ORAL For High Blood Pressure 06/29/18 14:30 07/29/18 14:29 Dextrose (Dextrose 50%) 25 ml Q30M PRN IV Hypoglycemia 06/29/18 14:30 07/29/18 14:29 Dextrose (Dextrose 50%) 50 ml Q30M PRN IV Hypoglycemia 06/29/18 14:30 07/29/18 14:29 Lorazepam (Ativan 2mg/ml 1ml) 0.5 mg Q4H PRN IV For Anxiety 06/29/18 14:30 07/06/18 14:29 Mirtazapine (Remeron) 15 mg BEDTIME ORAL 06/29/18 21:00 07/29/18 20:59 06/29/18 20:31 Morphine Sulfate (Morphine Sulfate) 1 mg Q4H PRN IVP For Pain 7-10 06/29/18 14:30 07/06/18 14:29 Nitroglycerin (Ntg) 0.4 mg Q5M X 3 DOSES PRN SL Prn Chest Pain 06/29/18 14:30 07/29/18 14:29 Ondansetron HCl (Zofran) 4 mg Q6H PRN IVP Nausea & Vomiting 06/29/18 14:30 07/29/18 14:29 Polyethylene Glycol (Miralax) 17 gm HSPRN PRN ORAL Constipation 06/29/18 14:30 07/29/18 14:29 Rivaroxaban (Xarelto) 15 mg DAILY ORAL 06/30/18 09:00 07/30/18 08:59 06/30/18 08:29 Temazepam (Restoril) 15 mg HSPRN PRN ORAL Insomnia 06/29/18 14:30 07/06/18 14:29 Allergies: Coded Allergies: No Known Allergies (Unverified , 06/29/18) Subjective Awake, alert, responsive, denies any chest pain, denies any shortness of breath , reports constipation for past 3 days. Objective Last Vital Signs Date Time Temp Pulse Resp B/P (MAP) Pulse Ox O2 Delivery O2 Flow Rate FiO2 06/30/18 12:00 98.4 56 20 154/102 (119) 95 06/30/18 09:00 Room Air Laboratory Tests Test 06/29/18 23:30 06/30/18 09:50 Urine Color Pale yellow Urine Appearance Clear Urine pH 6 (4.5-8.0) Urine Specific [place] 1.015 (1.005-1.035) Urine Protein 1+ (NEGATIVE) H Urine Glucose (UA) Negative (NEGATIVE) Urine Ketones Negative (NEGATIVE) Urine Blood Negative (NEGATIVE) Urine Nitrite Negative (NEGATIVE) Urine Bilirubin Negative (NEGATIVE) Urine Urobilinogen Normal MG/DL (0.0-1.0) Urine Leukocyte Esterase Negative (NEGATIVE) Urine RBC 0-2 /HPF (0 - 0) H Urine WBC 0-2 /HPF (0 - 0) Urine Squamous Epithelial Cells Occasional /LPF Urine Bacteria Occasional /HPF (NONE) Urine Hyaline Casts 0-2 /LPF (NONE) H Urine Eosinophils None seen (NONE SEEN) Urine Random Creatinine Pending Urine Random Microalbumin Pending Urine Random Sodium 54 mmol/L (20-110) Urine Creatinine 118.9 MG/DL (30.0-125.0) Urine Microalbumin/Creatinine Ratio Pending Urine Potassium Timed 37 mmol/L (12-62) White Blood Count 8.2 K/UL (4.8-10.8) Red Blood Count 5.21 M/UL (4.70-6.10) Hemoglobin 15.0 G/DL (14.2-18.0) Hematocrit 44.7 % (42.0-52.0) Mean Corpuscular Volume 86 FL (80-99) Mean Corpuscular Hemoglobin 28.8 PG (27.0-31.0) Mean Corpuscular Hemoglobin Concent 33.6 G/DL (32.0-36.0) Red Cell Distribution Width 13.6 % (11.6-14.8) Platelet Count 191 K/UL (150-450) Mean Platelet Volume 9.9 FL (6.5-10.1) Neutrophils (%) (Auto) 77.4 % (45.0-75.0) H Lymphocytes (%) (Auto) 14.1 % (20.0-45.0) L Monocytes (%) (Auto) 6.8 % (1.0-10.0) Eosinophils (%) (Auto) 0.9 % (0.0-3.0) Basophils (%) (Auto) 0.9 % (0.0-2.0) Prothrombin Time 13.4 SEC (9.30-11.50) H Prothromb Time International Ratio 1.3 (0.9-1.1) H Activated Partial Thromboplast Time 34 SEC (23-33) H Sodium Level 142 MMOL/L (136-145) Potassium Level 3.4 MMOL/L (3.5-5.1) L Chloride Level 105 MMOL/L (98-107) Carbon Dioxide Level 26 MMOL/L (21-32) Anion Gap 11 mmol/L (5-15) Blood Urea Nitrogen 25 mg/dL (7-18) H Creatinine 1.5 MG/DL (0.55-1.30) H Estimat Glomerular Filtration Rate mL/min (>60) Glucose Level 98 MG/DL (74-106) Calcium Level 9.1 MG/DL (8.5-10.1) Total Bilirubin 0.5 MG/DL (0.2-1.0) Aspartate Amino Transf (AST/SGOT) 20 U/L (15-37) Alanine Aminotransferase (ALT/SGPT) 18 U/L (12-78) Alkaline Phosphatase 55 U/L (46-116) Troponin I 0.012 ng/mL (0.000-0.056) Pro-B-Type Natriuretic Peptide 827 pg/mL (0-125) H Total Protein 7.3 G/DL (6.4-8.2) Albumin 3.3 G/DL (3.4-5.0) L Globulin 4.0 g/dL Albumin/Globulin Ratio 0.8 (1.0-2.7) L Triglycerides Level 65 MG/DL (30-150) Cholesterol Level 136 MG/DL (< 200) LDL Cholesterol 51 mg/dL (<100) HDL Cholesterol 69 MG/DL (40-60) H Cholesterol/HDL Ratio 2.0 (3.3-4.4) L Thyroid Stimulating Hormone (TSH) 0.513 uiU/mL (0.358-3.740) Free Thyroxine 1.08 NG/DL (0.76-1.46) Intake and Output 06/29/18 06/30/18 19:00 07:00 Intake Total 120 ml Output Total 250 ml Balance 120 ml -250 ml Intake Oral 120 ml Output Urine Total 250 ml # Bowel Movements 1 1 Objective General: No acute distress, awake and alert HEENT: NCAT, sclera anicteric, PERRL, EOMI. Neck: Supple, no significant jugular venous distention, Lungs: Good inspiratory effort, no accessory muscle use, no Wheeze or Rales. Heart: Regular rate and rhythm, normal S1/S2, no murmur. Abdomen: soft, nontender, nondistended. Normoactive bowel sounds. / Rectal: Refused and deferred. Extremities: No Cyanosis , clubbing or edema. Neuro: A&O x 3, Able to move all extremities Skin: warm, no rashes or lesions Psych: Normal mood and affect Assessment/Plan Assessment/Plan 1. Syncopal episode. 2. Bradycardia. 3. Hypertension. 4. Parkinson disease. 5. Hypercholesterolemia. 6. Severe dehydration with a prerenal azotemia. 7. Acute kidney injury. 8. History of colon cancer. Plan: Discussed with the son extensively over the phone, explained patient status and plan of care. CODE STATUS full code. DVT prophylaxis heparin subcu. Follow-up with the laboratory in the morning. Follow-up with a 2D echo. Cardiology consultation as well as pulmonary consultation. Billy Sanders MD Jun 30, 2018 16:56
[2018-06-30] MEDS ORDERED: Miralax 17gm pkt ORAL PRN (17:00)
[2018-06-30] MEDS: Miralax 17gm pkt ORAL PRN (17:08)
--- NOTE | 2018-06-30 19:25 | NUR ---
NURSE NOTES: Received report erwin Garrison RN, pt. in bed awake, A/O x's3- forget at times, no sign or symptoms of acute cardiac or respiratory distress noted, cardiac monitoring on- no distress noted, pt. aware to ask for assistance when ambulating, bed alarm on side rails up x's3 and safety brakes engaged, call light within easy reach and bed in lowest position, pt. appears to be sating well on room air at 98%, comfort measures provided, urinal at bedside and within easy reach, RT. AC 18G IV intact and patent- SL. Safety measures continued, will continue with plan of care.
--- NOTE | 2018-06-30 19:45 | NUR ---
HAND-OFF: Report given to BELEN Carrillo.
[2018-06-30 20:00] VITALS: BP 149/64
[2018-07-01] VITALS: BP 149/76
[2018-07-01 03:31] VITALS: BP 170/89
--- NOTE | 2018-07-01 03:40 | NUR ---
NURSE NOTES: patients b/p elevated 170/98- explained to pt. i will be giving him oral medication to bring b/p down- pt. refused- explained risks and benefits 3 times- pt. still continued to refuse. Asked charge nurse Judith if she could try giving patient medication- pt. still continued to refused and stated he is not a child and aware of his b/p being high and continued to refuse.
--- NOTE | 2018-07-01 03:46 | Consultation ---
DATE OF CONSULTATION: 06/30/2018 CONSULTING PHYSICIAN: Noelle Pfeiffer M.D. ATTENDING PHYSICIAN: Billy Sanders M.D. REFERRING PHYSICIAN: Billy Sanders M.D. HISTORY OF PRESENT ILLNESS: This is an 87-year-old male who at home and presented to the emergency room and is admitted to rule out acute cerebrovascular accident or myocardial infarction. PAST MEDICAL HISTORY: Hypertension and Parkinson disease. The patient has a history of colon cancer. MEDICATIONS: Sinemet 25/100, clonidine, Nexium, losartan, mirtazapine, Bystolic, Xarelto, and rosuvastatin. REVIEW OF SYSTEMS: I completed a comprehensive review of systems with the patient and also his who was present in the room. He reports no recent weight loss or weight gain.CONSTITUTIONAL: No fever or chills. HEENT: The patient has no ear or throat pain. No headaches. CARDIOVASCULAR: The patient reports no chest pain. CHEST: The patient denies any shortness of breath. ABDOMEN: The patient denies any abdominal pain. PHYSICAL EXAMINATION: VITAL SIGNS: The patient is afebrile with stable vitals. GENERAL: He is alert and oriented, in no acute distress. HEENT: Extraocular movements are intact. EXTREMITIES: Sensory is intact. He has good strength. SKIN: The patient has extremely thin skin. He has some bruising on both upper limbs. Also, he has a small abrasion on his right elbow, measuring 1 x 1 cm. He also has small abrasions on his left upper arm, which were covered with a Band-Aid. The patient refused to let me examine his left upper arm. He also had extremely dry skin. RECOMMENDATIONS: 1. Recommend antibiotic ointment. Clean and dry dressing for the abrasions. 2. I recommend protective arm sleeve to prevent him from having any additional injuries since he has very thin and fragile skin. 3. I recommend moisturizing skin daily. 4. Heel protection while in bed. 5. Perform Weekly skin checks. Noelle Pfeiffer M.D. DR: MATT JOB#: [id number] CC: [place]
--- NOTE | 2018-07-01 06:41 | NUR ---
NURSE NOTES: per shop service technician- pt. is refusing blood draw- asked pt. again if he would draw labs- pt. continuing to refuse- explain reason for lab draw- pt. still refused. Charge nurse Judith cloud.
--- NOTE | 2018-07-01 07:17 | NUR ---
HAND-OFF: Report given to Lina Rn, pt. remains stable and no signs of distress noted. Aware to f/u on b/p pt. is refusing PRN b/p medication.
--- NOTE | 2018-07-01 07:41 | Pulmonology Progress Note ---
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 pacemaker continue Xarelto for history of PAF CT head no acute intracranial pathology , + evidence of old infarct CXR + massive hiatal hernia , no definite acute cardiopulmonary process , + CM Echo preliminary report with EF 55-60% ,mild LVH and RVSP of 39 c/w mild pulmonary hypertension DVT prophylaxis supplemental O2 titrate as needed pulmonary toilet carotid duplex orthostatic vital signs continue Sinemet supportive care fall precaution PT eval and Rx monitor renal parameters and lites , correct electrolytes as needed, avoid nephrotoxic creatinine trending down ROSY was likely secondary to severe dehydration case discussed and evaluated by supervising physician Subjective Allergies: Coded Allergies: No Known Allergies (Unverified , 06/29/18) Subjective remains bradycardic BP elevated no signs of resp distress Objective Last 24 Hour Vital Signs Date Time Temp Pulse Resp B/P (MAP) Pulse Ox O2 Delivery O2 Flow Rate FiO2 07/01/18 04:00 50 07/01/18 03:31 98.1 62 20 170/89 (116) 97 07/01/18 00:00 98.3 60 18 149/76 (100) 97 07/01/18 00:00 50 06/30/18 20:00 Room Air 06/30/18 20:00 58 06/30/18 20:00 98.1 62 20 149/64 (92) 96 06/30/18 18:34 163/85 06/30/18 16:00 58 06/30/18 16:00 98.3 60 20 163/85 (111) 95 06/30/18 12:00 98.4 56 20 154/102 (119) 95 06/30/18 12:00 52 06/30/18 09:00 Room Air 06/30/18 08:00 68 06/30/18 08:00 98.5 66 20 147/74 (98) 95 Intake and Output 06/30/18 07/01/18 19:00 07:00 Intake Total 1500 ml Output Total 400 ml Balance 1500 ml -400 ml Intake Oral 1500 ml Output Urine Total 400 ml # Voids 3 3 # Bowel Movements 1 1 General Appearance: no acute distress, other - elderly [place] speaking, not fully engaged in conversation HEENT: normocephalic, atraumatic, anicteric Respiratory/Chest: lungs clear, no accessory muscle use Cardiovascular: bradycardia - SB on tele Abdomen: soft, non tender, non distended Neurologic/Psychiatric: abnormal gait, alert, responsive Musculoskeletal: atrophy - BLE Laboratory Tests 06/30/18 09:50: White Blood Count 8.2, Red Blood Count 5.21, Hemoglobin 15.0, Hematocrit 44.7, Mean Corpuscular Volume 86, Mean Corpuscular Hemoglobin 28.8, Mean Corpuscular Hemoglobin Concent 33.6, Red Cell Distribution Width 13.6, Platelet Count 191, Mean Platelet Volume 9.9, Neutrophils (%) (Auto) 77.4H, Lymphocytes (%) (Auto) 14.1L, Monocytes (%) (Auto) 6.8, Eosinophils (%) (Auto) 0.9, Basophils (%) (Auto ) 0.9, Prothrombin Time 13.4H, Prothromb Time International Ratio 1.3H, Activated Partial Thromboplast Time 34H, Sodium Level 142, Potassium Level 3.4L , Chloride Level 105, Carbon Dioxide Level 26, Anion Gap 11, Blood Urea Nitrogen 25H, Creatinine 1.5H, Estimat Glomerular Filtration Rate , Glucose Level 98, Calcium Level 9.1, Total Bilirubin 0.5, Aspartate Amino Transf (AST/ SGOT) 20, Alanine Aminotransferase (ALT/SGPT) 18, Alkaline Phosphatase 55, Troponin I 0.012, Pro-B-Type Natriuretic Peptide 827H, Total Protein 7.3, Albumin 3.3L, Globulin 4.0, Albumin/Globulin Ratio 0.8L, Triglycerides Level 65 , Cholesterol Level 136, LDL Cholesterol 51, HDL Cholesterol 69H, Cholesterol/ HDL Ratio 2.0L, Thyroid Stimulating Hormone (TSH) 0.513, Free Thyroxine 1.08 Current Medications Medications (Trade) Dose Ordered Sig/Sunni Route PRN Reason Start Time Stop Time Status Last Admin Dose Admin Acetaminophen (Tylenol) 650 mg Q4H PRN ORAL fever 06/29/18 14:30 07/29/18 14:29 Al Hydroxide/Mg Hydroxide (Mylanta II) 30 ml Q6H PRN ORAL dyspepsia 06/29/18 14:30 07/29/18 14:29 Albuterol/ Ipratropium (Albuterol/ Ipratropium) 3 ml Q4H PRN HHN Shortness of Breath 06/29/18 14:30 07/04/18 14:29 Carbidopa/Levodopa (Sinemet 25/100) 1 tab THREE TIMES A DAY ORAL 06/29/18 18:00 07/29/18 17:59 06/30/18 17:08 Clonidine HCl (Catapres Tab) 0.1 mg Q4H PRN ORAL For High Blood Pressure 06/29/18 14:30 07/29/18 14:29 06/30/18 18:34 Dextrose (Dextrose 50%) 25 ml Q30M PRN IV Hypoglycemia 06/29/18 14:30 07/29/18 14:29 Dextrose (Dextrose 50%) 50 ml Q30M PRN IV Hypoglycemia 06/29/18 14:30 07/29/18 14:29 Lorazepam (Ativan 2mg/ml 1ml) 0.5 mg Q4H PRN IV For Anxiety 06/29/18 14:30 07/06/18 14:29 Mirtazapine (Remeron) 15 mg BEDTIME ORAL 06/29/18 21:00 07/29/18 20:59 06/30/18 20:02 Morphine Sulfate (Morphine Sulfate) 1 mg Q4H PRN IVP For Pain 7-10 06/29/18 14:30 07/06/18 14:29 Nitroglycerin (Ntg) 0.4 mg Q5M X 3 DOSES PRN SL Prn Chest Pain 06/29/18 14:30 07/29/18 14:29 Ondansetron HCl (Zofran) 4 mg Q6H PRN IVP Nausea & Vomiting 06/29/18 14:30 07/29/18 14:29 Polyethylene Glycol (Miralax) 17 gm DAILYPRN PRN ORAL Constipation 06/30/18 17:00 07/30/18 16:59 Polyethylene Glycol (Miralax) 17 gm HSPRN PRN ORAL Constipation 06/29/18 14:30 07/29/18 14:29 06/30/18 17:08 Rivaroxaban (Xarelto) 15 mg DAILY ORAL 3/8/19 09:00 07/30/18 08:59 06/30/18 08:29 Temazepam (Restoril) 15 mg HSPRN PRN ORAL Insomnia 06/29/18 14:30 07/06/18 14:29 Leighann Chanel NP Jul 01, 2018 07:41
[2018-07-01 08:00] VITALS: BP 167/82
--- NOTE | 2018-07-01 08:00 | NUR ---
NURSE NOTES: Pt awake/alert in bed, breathing easily on room air, denies SOB and denies pain at this time, Vital signs stable with SR @ 52 on monitor. IV access right forearm flushed with 10 ml NS and locked. Bed left in low position, side rails up x 2 and call light left near pt's hand.
[2018-07-01] MEDS: Levodopa/Carbidopa 25/100 tab ORAL SCH ×3 (08:58→17:44)
[2018-07-01] MEDS: Xarelto 15mg tab ORAL SCH (08:58)
[2018-07-01 12:00] VITALS: BP 154/86
[2018-07-01] MEDS ORDERED: HydrALAZINE 10mg Tab ORAL SCH ×2 (12:00→14:00)
--- NOTE | 2018-07-01 15:15 | Cardiac Electrophysiology PN ---
Assessment/Plan Assessment/Plan 1. Syncope in the patient with bradycardia. Not critically bradycardic with heart rate in 50s. History of paroxysmal atrial fibrillation. He is at risk of having sick sinus syndrome. Now better off Bystolic. EF 55% 2. Paroxysmal atrial fibrillation, on Xarelto 15 mg daily. 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 3. HTN On Hydralazine 10 tid 3. Parkinson disease. 4. History of prior CVA. 5. Renal failure. Creatinine 1.9 improved to 1.5. DW RN Subjective Subjective No CP or SOB. No further seven overnight Objective Last 24 Hour Vital Signs Date Time Temp Pulse Resp B/P (MAP) Pulse Ox O2 Delivery O2 Flow Rate FiO2 07/01/18 13:19 170/89 07/01/18 12:00 57 07/01/18 09:00 Room Air 07/01/18 08:00 55 07/01/18 04:00 50 07/01/18 03:31 98.1 62 20 170/89 (116) 97 07/01/18 00:00 98.3 60 18 149/76 (100) 97 07/01/18 00:00 50 06/30/18 20:00 Room Air 06/30/18 20:00 58 06/30/18 20:00 98.1 62 20 149/64 (92) 96 06/30/18 18:34 163/85 06/30/18 16:00 58 06/30/18 16:00 98.3 60 20 163/85 (111) 95 Intake and Output 06/30/18 07/01/18 19:00 07:00 Intake Total 1500 ml Output Total 400 ml Balance 1500 ml -400 ml Intake Oral 1500 ml Output Urine Total 400 ml # Voids 3 3 # Bowel Movements 1 1 Objective HEAD AND NECK: No JVD. LUNGS: Clear. CARDIOVASCULAR: Regular S1 and S2 with no gallop or murmur. ABDOMEN: Soft. EXTREMITIES: No pitting edema. Christiano Javier MD Jul 01, 2018 15:15
[2018-07-01 16:00] VITALS: BP 156/79
--- NOTE | 2018-07-01 17:16 | Internal Med Progress Note ---
Subjective Date of Service: Jul 01, 2018 Physician Name Mendez,Jason Attending Physician Billy Sanders MD Current Medications Medications (Trade) Dose Ordered Sig/Sunni Route PRN Reason Start Time Stop Time Status Last Admin Dose Admin Acetaminophen (Tylenol) 650 mg Q4H PRN ORAL fever 06/29/18 14:30 07/29/18 14:29 Al Hydroxide/Mg Hydroxide (Mylanta II) 30 ml Q6H PRN ORAL dyspepsia 06/29/18 14:30 07/29/18 14:29 Albuterol/ Ipratropium (Albuterol/ Ipratropium) 3 ml Q4H PRN HHN Shortness of Breath 06/29/18 14:30 07/04/18 14:29 Carbidopa/Levodopa (Sinemet 25/100) 1 tab THREE TIMES A DAY ORAL 06/29/18 18:00 07/29/18 17:59 07/01/18 13:19 Dextrose (Dextrose 50%) 25 ml Q30M PRN IV Hypoglycemia 06/29/18 14:30 07/29/18 14:29 Dextrose (Dextrose 50%) 50 ml Q30M PRN IV Hypoglycemia 06/29/18 14:30 07/29/18 14:29 Hydralazine HCl (Apresoline) 25 mg EVERY 8 HOURS ORAL 07/01/18 22:00 07/31/18 11:44 Lorazepam (Ativan 2mg/ml 1ml) 0.5 mg Q4H PRN IV For Anxiety 06/29/18 14:30 07/06/18 14:29 Mirtazapine (Remeron) 15 mg BEDTIME ORAL 06/29/18 21:00 07/29/18 20:59 06/30/18 20:02 Morphine Sulfate (Morphine Sulfate) 1 mg Q4H PRN IVP For Pain 7-10 06/29/18 14:30 07/06/18 14:29 Nitroglycerin (Ntg) 0.4 mg Q5M X 3 DOSES PRN SL Prn Chest Pain 06/29/18 14:30 07/29/18 14:29 Ondansetron HCl (Zofran) 4 mg Q6H PRN IVP Nausea & Vomiting 06/29/18 14:30 07/29/18 14:29 Polyethylene Glycol (Miralax) 17 gm DAILYPRN PRN ORAL Constipation 06/30/18 17:00 07/30/18 16:59 Polyethylene Glycol (Miralax) 17 gm HSPRN PRN ORAL Constipation 06/29/18 14:30 07/29/18 14:29 06/30/18 17:08 Rivaroxaban (Xarelto) 15 mg DAILY ORAL 06/30/18 09:00 07/30/18 08:59 07/01/18 08:58 Temazepam (Restoril) 15 mg HSPRN PRN ORAL Insomnia 06/29/18 14:30 07/06/18 14:29 Allergies: Coded Allergies: No Known Allergies (Unverified , 06/29/18) ROS Limited/Unobtainable: No Constitutional: Reports: no symptoms HEENT: Reports: no symptoms Cardiovascular: Reports: no symptoms Respiratory: Reports: no symptoms Gastrointestinal/Abdominal: Reports: no symptoms Genitourinary: Reports: no symptoms Neurologic/Psychiatric: Reports: no symptoms Subjective 87 YO M admitted with syncope. Now sinus bradycardia. Cover for [facility] Med-Dr Sanders. Objective Last Vital Signs Date Time Temp Pulse Resp B/P (MAP) Pulse Ox O2 Delivery O2 Flow Rate FiO2 07/01/18 16:00 58 07/01/18 16:00 98.1 17 156/79 (104) 96 07/01/18 09:00 Room Air Intake and Output 06/30/18 07/01/18 19:00 07:00 Intake Total 1500 ml Output Total 400 ml Balance 1500 ml -400 ml Intake Oral 1500 ml Output Urine Total 400 ml # Voids 3 3 # Bowel Movements 1 1 Objective PHYSICAL EXAMINATION: GENERAL: The patient is well-developed, well-nourished white male, in no apparent distress. HEENT: Eyes, pupils are equal and responsive to light and accommodation. Extraocular movements are intact. NECK: Supple without lymphadenopathy. CHEST: Lungs are clear to auscultation bilaterally without wheezes or rales. CARDIOVASCULAR: Regular rate. S1-S2 are normal without murmurs, rubs, or gallops. ABDOMEN: Soft, nontender, nondistended. Positive bowel sounds. No evidence of hepatosplenomegaly. Currently, no rebound or guarding noted. EXTREMITIES: Negative for clubbing, cyanosis, or edema. RECTAL/GENITAL: Refused. NEUROLOGIC: Cranial II through XII are grossly intact without focal deficits. Motor strength is 5/5 bilaterally. Deep tendon reflexes are 2+ plantar. Assessment/Plan Assessment/Plan ASSESSMENT: This is an 87-year-old white male. 1. Syncopal episode. 2. Bradycardia. 3. Hypertension. 4. Parkinson disease. 5. Hypercholesterolemia. TREATMENT: 1. Syncopal episode. A Cardiology consultation is pending with Dr. Javier. D/C bystolic. May require pacemaker 2. Hypertension. D/C Bystolic as above. 3. Parkinson disease. Continue Sinemet as above. 4. Hypercholesteremia. Continue rosuvastatin as above. Jason Mendez MD Jul 01, 2018 17:16
--- NOTE | 2018-07-01 19:40 | NUR ---
NURSE NOTES: Report received from BELEN Silverman. Pt is lying comfortably in semi-fowlers with no sign of distress. A+Ox4, no pain, no SOB. IV sites are intact, patent, and running fluids at prescribed rate. Bed is at lowest position, brakes engaged, siderails x2, bed alarm on, and call light within reach. Pt is in stable condition; will continue to monitor.
[2018-07-01 20:00] VITALS: BP 152/70
[2018-07-01] MEDS: HydrALAZINE 25mg tab ORAL SCH (22:18)
[2018-07-02] VITALS: BP 165/69
[2018-07-02 04:00] VITALS: BP 177/73
[2018-07-02] MEDS: HydrALAZINE 25mg tab ORAL SCH ×3 (05:31→21:21)
--- NOTE | 2018-07-02 05:55 | NUR ---
Pt BP elevated throughout the night. Hydralazine given as prescribed. Dr. Javier notified. Awaiting response.
--- NOTE | 2018-07-02 07:17 | NUR ---
HAND-OFF: Report given to BELEN Silverman. Pt is in stable condition. Plan of care endorsed.
--- NOTE | 2018-07-02 07:59 | NUR ---
NURSE NOTES: Pt asleep in bed, breathing easily on room air, awoke to soft voice, denies SOB and denies pain at this time, Vital signs stable with SR @ 58 on monitor. IV access right forearm flushed with 10 ml NS and locked. Bed left in low position, side rails up x 2 and call light left near pt's hand.
[2018-07-02 08:00] VITALS: BP 164/74
--- NOTE | 2018-07-02 08:22 | Pulmonology Progress Note ---
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 continue Xarelto for history of PAF CT head no acute intracranial pathology , + evidence of old infarct CXR + massive hiatal hernia , no definite acute cardiopulmonary process , + CM Echo preliminary report with EF 55-60% ,mild LVH and RVSP of 39 c/w mild pulmonary hypertension DVT prophylaxis supplemental O2 titrate as needed pulmonary toilet carotid duplex orthostatic vital signs continue Sinemet supportive care fall precaution PT eval and Rx monitor renal parameters and lytes , correct electrolytes as needed, avoid nephrotoxic creatinine trending down ROSY was likely secondary to severe dehydration case discussed and evaluated by supervising physician Subjective Allergies: Coded Allergies: No Known Allergies (Unverified , 06/29/18) Subjective remains bradycardic in 50th BP elevated no signs of resp distress more awake and responsive this am Objective Last 24 Hour Vital Signs Date Time Temp Pulse Resp B/P (MAP) Pulse Ox O2 Delivery O2 Flow Rate FiO2 07/02/18 05:31 160/74 07/02/18 04:00 97.3 54 17 177/73 (107) 94 07/02/18 03:49 54 07/02/18 00:00 98.4 55 17 165/69 (101) 95 07/01/18 23:46 53 07/01/18 22:18 152/70 07/01/18 21:10 64 07/01/18 21:05 60 07/01/18 21:00 Room Air 07/01/18 21:00 54 07/01/18 20:00 98.9 59 17 152/70 (97) 93 07/01/18 20:00 63 07/01/18 16:00 58 07/01/18 16:00 98.1 58 17 156/79 (104) 96 07/01/18 13:19 170/89 07/01/18 12:00 57 07/01/18 12:00 97.7 54 18 154/86 (108) 97 07/01/18 09:00 Room Air Intake and Output 07/01/18 07/02/18 18:59 06:59 Intake Total 1500 ml Output Total 225 ml 575 ml Balance 1275 ml -575 ml Intake Oral 1500 ml Output Urine Total 225 ml 575 ml # Voids 3 # Bowel Movements 1 Objective General Appearance: no acute distress, elderly [place] speaking, not fully engaged in conversation HEENT: normocephalic, atraumatic, anicteric Respiratory/Chest: lungs clear, no accessory muscle use Cardiovascular: bradycardia - SB on tele in 50th Abdomen: soft, non tender, non distended Neurologic/Psychiatric: abnormal gait, alert, responsive Musculoskeletal: atrophy - BLE Current Medications Medications (Trade) Dose Ordered Sig/Sunni Route PRN Reason Start Time Stop Time Status Last Admin Dose Admin Acetaminophen (Tylenol) 650 mg Q4H PRN ORAL fever 06/29/18 14:30 07/29/18 14:29 Al Hydroxide/Mg Hydroxide (Mylanta II) 30 ml Q6H PRN ORAL dyspepsia 06/29/18 14:30 07/29/18 14:29 Albuterol/ Ipratropium (Albuterol/ Ipratropium) 3 ml Q4H PRN HHN Shortness of Breath 06/29/18 14:30 07/04/18 14:29 Carbidopa/Levodopa (Sinemet 25/100) 1 tab THREE TIMES A DAY ORAL 06/29/18 18:00 07/29/18 17:59 07/01/18 17:44 Dextrose (Dextrose 50%) 25 ml Q30M PRN IV Hypoglycemia 06/29/18 14:30 07/29/18 14:29 Dextrose (Dextrose 50%) 50 ml Q30M PRN IV Hypoglycemia 06/29/18 14:30 07/29/18 14:29 Hydralazine HCl (Apresoline) 25 mg EVERY 8 HOURS ORAL 07/01/18 22:00 07/31/18 11:44 07/02/18 05:31 Lorazepam (Ativan 2mg/ml 1ml) 0.5 mg Q4H PRN IV For Anxiety 06/29/18 14:30 07/06/18 14:29 Mirtazapine (Remeron) 15 mg BEDTIME ORAL 06/29/18 21:00 07/29/18 20:59 07/01/18 22:18 Morphine Sulfate (Morphine Sulfate) 1 mg Q4H PRN IVP For Pain 7-10 06/29/18 14:30 07/06/18 14:29 Nitroglycerin (Ntg) 0.4 mg Q5M X 3 DOSES PRN SL Prn Chest Pain 06/29/18 14:30 07/29/18 14:29 Ondansetron HCl (Zofran) 4 mg Q6H PRN IVP Nausea & Vomiting 06/29/18 14:30 07/29/18 14:29 Polyethylene Glycol (Miralax) 17 gm DAILYPRN PRN ORAL Constipation 06/30/18 17:00 07/30/18 16:59 Polyethylene Glycol (Miralax) 17 gm HSPRN PRN ORAL Constipation 06/29/18 14:30 07/29/18 14:29 06/30/18 17:08 Rivaroxaban (Xarelto) 15 mg DAILY ORAL 06/30/18 09:00 07/30/18 08:59 07/01/18 08:58 Temazepam (Restoril) 15 mg HSPRN PRN ORAL Insomnia 06/29/18 14:30 07/06/18 14:29 07/01/18 22:23 Leighann Chanel NP Jul 02, 2018 08:22
[2018-07-02 08:25] LABS: BASOPHILS % (AUTO) 1.6 % (0.0-2.0); HEMATOCRIT 44.8 % (42.0-52.0); LYMPHOCYTES % (AUTO) 21.2 % (20.0-45.0); MEAN CORPUSCULAR VOLUME 87 FL (80-99); MONOCYTES % (AUTO) 8.3 % (1.0-10.0); NEUTROPHILS % (AUTO) 64.9 % (45.0-75.0); PLATELET COUNT 178 K/UL (150-450); RED BLOOD COUNT 5.17 M/UL (4.70-6.10); RED CELL DISTRIBUTION WIDTH 13.7 % (11.6-14.8); WHITE BLOOD COUNT 7.8 K/UL (4.8-10.8)
[2018-07-02] MEDS: Xarelto 15mg tab ORAL SCH (09:38)
[2018-07-02] MEDS: Levodopa/Carbidopa 25/100 tab ORAL SCH ×3 (09:38→17:20)
[2018-07-02] MEDS ORDERED: Albuterol/Ipratropium 3ml neb HHN PRN (09:42)
[2018-07-02 12:00] VITALS: BP 165/82
--- NOTE | 2018-07-02 15:08 | Internal Med Progress Note ---
Subjective Date of Service: Jul 02, 2018 Physician Name Mendez,Jason Attending Physician Billy Sanders MD Current Medications Medications (Trade) Dose Ordered Sig/Sunni Route PRN Reason Start Time Stop Time Status Last Admin Dose Admin Acetaminophen (Tylenol) 650 mg Q4H PRN ORAL fever 06/29/18 14:30 07/29/18 14:29 Al Hydroxide/Mg Hydroxide (Mylanta II) 30 ml Q6H PRN ORAL dyspepsia 06/29/18 14:30 07/29/18 14:29 Albuterol/ Ipratropium (Albuterol/ Ipratropium) 3 ml Q4H PRN HHN Shortness of Breath 07/02/18 09:42 07/07/18 09:41 Carbidopa/Levodopa (Sinemet 25/100) 1 tab THREE TIMES A DAY ORAL 06/29/18 18:00 07/29/18 17:59 07/02/18 12:52 Dextrose (Dextrose 50%) 25 ml Q30M PRN IV Hypoglycemia 06/29/18 14:30 07/29/18 14:29 Dextrose (Dextrose 50%) 50 ml Q30M PRN IV Hypoglycemia 06/29/18 14:30 07/29/18 14:29 Hydralazine HCl (Apresoline) 25 mg EVERY 8 HOURS ORAL 07/01/18 22:00 07/31/18 11:44 07/02/18 12:52 Lorazepam (Ativan 2mg/ml 1ml) 0.5 mg Q4H PRN IV For Anxiety 06/29/18 14:30 07/06/18 14:29 Mirtazapine (Remeron) 15 mg BEDTIME ORAL 06/29/18 21:00 07/29/18 20:59 07/01/18 22:18 Morphine Sulfate (Morphine Sulfate) 1 mg Q4H PRN IVP For Pain 7-10 06/29/18 14:30 07/06/18 14:29 Nitroglycerin (Ntg) 0.4 mg Q5M X 3 DOSES PRN SL Prn Chest Pain 06/29/18 14:30 07/29/18 14:29 Ondansetron HCl (Zofran) 4 mg Q6H PRN IVP Nausea & Vomiting 06/29/18 14:30 07/29/18 14:29 Polyethylene Glycol (Miralax) 17 gm DAILYPRN PRN ORAL Constipation 06/30/18 17:00 07/30/18 16:59 Polyethylene Glycol (Miralax) 17 gm HSPRN PRN ORAL Constipation 06/29/18 14:30 07/29/18 14:29 06/30/18 17:08 Rivaroxaban (Xarelto) 15 mg DAILY ORAL 06/30/18 09:00 07/30/18 08:59 07/02/18 09:38 Temazepam (Restoril) 15 mg HSPRN PRN ORAL Insomnia 06/29/18 14:30 07/06/18 14:29 07/01/18 22:23 Allergies: Coded Allergies: No Known Allergies (Unverified , 06/29/18) ROS Limited/Unobtainable: No Constitutional: Reports: no symptoms HEENT: Reports: no symptoms Cardiovascular: Reports: no symptoms Respiratory: Reports: no symptoms Gastrointestinal/Abdominal: Reports: no symptoms Genitourinary: Reports: no symptoms Neurologic/Psychiatric: Reports: no symptoms Subjective 87 YO M admitted with syncope. Now sinus bradycardia. Cover for Int Med-Dr Sanders. Objective Last Vital Signs Date Time Temp Pulse Resp B/P (MAP) Pulse Ox O2 Delivery O2 Flow Rate FiO2 07/02/18 12:52 165/82 07/02/18 12:00 97.8 54 17 94 07/02/18 09:00 Room Air Laboratory Tests Test 07/02/18 07:35 White Blood Count 7.8 K/UL (4.8-10.8) Red Blood Count 5.17 M/UL (4.70-6.10) Hemoglobin 15.0 G/DL (14.2-18.0) Hematocrit 44.8 % (42.0-52.0) Mean Corpuscular Volume 87 FL (80-99) Mean Corpuscular Hemoglobin 29.1 PG (27.0-31.0) Mean Corpuscular Hemoglobin Concent 33.6 G/DL (32.0-36.0) Red Cell Distribution Width 13.7 % (11.6-14.8) Platelet Count 178 K/UL (150-450) Mean Platelet Volume 8.2 FL (6.5-10.1) Neutrophils (%) (Auto) 64.9 % (45.0-75.0) Lymphocytes (%) (Auto) 21.2 % (20.0-45.0) Monocytes (%) (Auto) 8.3 % (1.0-10.0) Eosinophils (%) (Auto) 4.0 % (0.0-3.0) H Basophils (%) (Auto) 1.6 % (0.0-2.0) Intake and Output 07/01/18 07/02/18 19:00 07:00 Intake Total 1500 ml Output Total 225 ml 575 ml Balance 1275 ml -575 ml Intake Oral 1500 ml Output Urine Total 225 ml 575 ml # Voids 3 # Bowel Movements 1 Objective PHYSICAL EXAMINATION: GENERAL: The patient is well-developed, well-nourished white male, in no apparent distress. HEENT: Eyes, pupils are equal and responsive to light and accommodation. Extraocular movements are intact. NECK: Supple without lymphadenopathy. CHEST: Lungs are clear to auscultation bilaterally without wheezes or rales. CARDIOVASCULAR: Regular rate. S1-S2 are normal without murmurs, rubs, or gallops. ABDOMEN: Soft, nontender, nondistended. Positive bowel sounds. No evidence of hepatosplenomegaly. Currently, no rebound or guarding noted. EXTREMITIES: Negative for clubbing, cyanosis, or edema. RECTAL/GENITAL: Refused. NEUROLOGIC: Cranial II through XII are grossly intact without focal deficits. Motor strength is 5/5 bilaterally. Deep tendon reflexes are 2+ plantar. Assessment/Plan Assessment/Plan ASSESSMENT: This is an 87-year-old white male. 1. Syncopal episode. 2. Bradycardia. 3. Hypertension. 4. Parkinson disease. 5. Hypercholesterolemia. TREATMENT: 1. Syncopal episode. See Cardiology consultation with Dr. Javier. D/C bystolic. May require pacemaker 2. Hypertension. D/C Bystolic as above. 3. Parkinson disease. Continue Sinemet as above. 4. Hypercholesteremia. Continue rosuvastatin as above. Jason Mendez MD Jul 02, 2018 15:08
[2018-07-02 16:00] VITALS: BP 147/87
--- NOTE | 2018-07-02 20:34 | NUR ---
NURSE NOTES: Report from Herrera RN. Patient awake and alert in bed. Saturating at 96% on RA. Vital signs stable. Patient on SR Denies SOB, no complaints of pain at this time. Pt asleep in bed, breathing easily on room air, awoke to soft voice, denies SOB and denies pain at this time, Vital signs stable with sinus seven @ 58 on the monitor. Bed in lowest position, call light within reach, all needs met. Will continue to monitor for any acute changes.
[2018-07-02 20:52] VITALS: BP 152/73
[2018-07-03] VITALS: BP 152/63
[2018-07-03 04:00] VITALS: BP 151/77
[2018-07-03] MEDS: HydrALAZINE 25mg tab ORAL SCH ×3 (06:15→21:26)
--- NOTE | 2018-07-03 07:22 | NUR ---
HAND-OFF: Report given to Orquidea GLOVER.
--- NOTE | 2018-07-03 07:27 | NUR ---
NURSE NOTES: Received report from BELEN Mccord. Patient in bed resting, no active s/s cardiac, respiratory distress noticed at this time, denies pain at this time. Patient on room air, SR with HR 69. IV site on right AC 20G asymptomatic, patent, intact. Bed in lowest position, side rails upx3, call light within reach. Will continue to monitor.
[2018-07-03 08:00] VITALS: BP 135/67
[2018-07-03] MEDS: Levodopa/Carbidopa 25/100 tab ORAL SCH ×3 (08:05→17:02)
[2018-07-03] MEDS: Xarelto 15mg tab ORAL SCH (08:05)
[2018-07-03 08:13] LABS: BASOPHILS % (AUTO) 1.1 % (0.0-2.0); EOSINOPHILS % (AUTO) 2.3 % (0.0-3.0); HEMATOCRIT 48.3 % (42.0-52.0); HEMOGLOBIN 16.1 G/DL (14.2-18.0); LYMPHOCYTES % (AUTO) 20.9 % (20.0-45.0); MEAN CORPUSCULAR VOLUME 87 FL (80-99); MONOCYTES % (AUTO) 6.6 % (1.0-10.0); NEUTROPHILS % (AUTO) 69.3 % (45.0-75.0); PLATELET COUNT 204 K/UL (150-450); RED BLOOD COUNT 5.57 M/UL (4.70-6.10); RED CELL DISTRIBUTION WIDTH 13.9 % (11.6-14.8); WHITE BLOOD COUNT 9.4 K/UL (4.8-10.8)
[2018-07-03 08:29] LABS: ANION GAP 9 mmol/L (5-15); BLOOD UREA NITROGEN 22 mg/dL (7-18); CALCIUM 9.3 MG/DL (8.5-10.1); CARBON DIOXIDE 26 MMOL/L (21-32); CHLORIDE 107 MMOL/L (98-107); CREATININE 1.4 MG/DL (0.55-1.30); POTASSIUM 3.8 MMOL/L (3.5-5.1); SODIUM 141 MMOL/L (136-145)
[2018-07-03 12:00] VITALS: BP 158/86
--- NOTE | 2018-07-03 13:42 | NUR ---
PT NOTE: Pt refused PT due to waiting for MD. Pt family was present and requested for PT treatment to be pushed back to a later time. Will return at a later time to attempt PT treatment. Left nurse call light within easy reach.
--- NOTE | 2018-07-03 13:51 | Pulmonology Progress Note ---
Assessment/Plan Problems: (1) Acute encephalopathy (2) ATN (acute tubular necrosis) (3) Cardiomegaly (4) Parkinson disease (5) Chronic anticoagulation Assessment/Plan continue telemetry monitoring echocardiogram, EF 55% renal studies pending monitor heart rate neuro evaluation dvt prophylaxis. start pt/ot Subjective ROS Limited/Unobtainable: No Constitutional: Reports: no symptoms Allergies: Coded Allergies: No Known Allergies (Unverified , 06/29/18) Objective Last 24 Hour Vital Signs Date Time Temp Pulse Resp B/P (MAP) Pulse Ox O2 Delivery O2 Flow Rate FiO2 07/03/18 13:19 158/86 07/03/18 09:35 72 16 Room Air 21 07/03/18 09:35 Room Air 21 07/03/18 09:35 96 Room Air 21 07/03/18 09:01 Room Air 07/03/18 08:00 63 07/03/18 08:00 97.7 77 18 135/67 (89) 95 07/03/18 06:15 151/77 07/03/18 04:00 99.2 68 19 151/77 (101) 72 07/03/18 04:00 69 07/03/18 00:00 66 07/03/18 00:00 97.5 60 18 152/63 (92) 96 07/02/18 21:50 97 Room Air 21 07/02/18 21:50 59 16 Room Air 21 07/02/18 21:50 Room Air 21 07/02/18 21:21 152/73 07/02/18 21:00 76 07/02/18 21:00 Room Air 07/02/18 20:52 97.5 60 21 152/73 (99) 95 07/02/18 20:00 58 07/02/18 16:00 97.0 74 21 147/87 (107) 92 07/02/18 16:00 74 Intake and Output 07/02/18 07/03/18 19:00 07:00 Output Total 500 ml Balance -500 ml Output Urine Total 500 ml HEENT: normocephalic, atraumatic Respiratory/Chest: chest wall non-tender, lungs clear Cardiovascular: normal peripheral pulses, regular rhythm Abdomen: normal bowel sounds, soft, non tender Genitourinary: normal external genitalia Neurologic/Psychiatric: benefits advisor II-XII grossly normal Laboratory Tests 07/03/18 07:57: White Blood Count 9.4, Red Blood Count 5.57, Hemoglobin 16.1, Hematocrit 48.3, Mean Corpuscular Volume 87, Mean Corpuscular Hemoglobin 28.8, Mean Corpuscular Hemoglobin Concent 33.3, Red Cell Distribution Width 13.9, Platelet Count 204, Mean Platelet Volume 8.7, Neutrophils (%) (Auto) 69.3, Lymphocytes (%) (Auto) 20.9, Monocytes (%) (Auto) 6.6, Eosinophils (%) (Auto) 2.3, Basophils (%) (Auto ) 1.1, Sodium Level 141, Potassium Level 3.8, Chloride Level 107, Carbon Dioxide Level 26, Anion Gap 9, Blood Urea Nitrogen 22H, Creatinine 1.4H, Estimat Glomerular Filtration Rate , Glucose Level 103, Calcium Level 9.3 Current Medications Medications (Trade) Dose Ordered Sig/Sunni Route PRN Reason Start Time Stop Time Status Last Admin Dose Admin Acetaminophen (Tylenol) 650 mg Q4H PRN ORAL fever 06/29/18 14:30 07/29/18 14:29 Al Hydroxide/Mg Hydroxide (Mylanta II) 30 ml Q6H PRN ORAL dyspepsia 06/29/18 14:30 07/29/18 14:29 Albuterol/ Ipratropium (Albuterol/ Ipratropium) 3 ml Q4H PRN HHN Shortness of Breath 07/02/18 09:42 07/07/18 09:41 Carbidopa/Levodopa (Sinemet 25/100) 1 tab THREE TIMES A DAY ORAL 06/29/18 18:00 07/29/18 17:59 07/03/18 13:19 Dextrose (Dextrose 50%) 25 ml Q30M PRN IV Hypoglycemia 06/29/18 14:30 07/29/18 14:29 Dextrose (Dextrose 50%) 50 ml Q30M PRN IV Hypoglycemia 06/29/18 14:30 07/29/18 14:29 Hydralazine HCl (Apresoline) 25 mg EVERY 8 HOURS ORAL 07/01/18 22:00 07/31/18 11:44 07/03/18 13:19 Lorazepam (Ativan 2mg/ml 1ml) 0.5 mg Q4H PRN IV For Anxiety 06/29/18 14:30 07/06/18 14:29 Mirtazapine (Remeron) 15 mg BEDTIME ORAL 06/29/18 21:00 07/29/18 20:59 07/02/18 21:21 Morphine Sulfate (Morphine Sulfate) 1 mg Q4H PRN IVP For Pain 7-06/29/18 14:30 07/06/18 14:29 Nitroglycerin (Ntg) 0.4 mg Q5M X 3 DOSES PRN SL Prn Chest Pain 06/29/18 14:30 07/29/18 14:29 Ondansetron HCl (Zofran) 4 mg Q6H PRN IVP Nausea & Vomiting 06/29/18 14:30 07/29/18 14:29 Polyethylene Glycol (Miralax) 17 gm DAILYPRN PRN ORAL Constipation 06/30/18 17:00 07/30/18 16:59 Polyethylene Glycol (Miralax) 17 gm HSPRN PRN ORAL Constipation 06/29/18 14:30 07/29/18 14:29 06/30/18 17:08 Rivaroxaban (Xarelto) 15 mg DAILY ORAL 06/30/18 09:00 07/30/18 08:59 07/03/18 08:05 Temazepam (Restoril) 15 mg HSPRN PRN ORAL Insomnia 06/29/18 14:30 07/06/18 14:29 07/02/18 22:04 Petey De La Torre MD Jul 03, 2018 13:51
--- NOTE | 2018-07-03 14:00 | NUR ---
NURSE NOTES: Dr. De La Torre made aware patient and family member requesting for PT. PT evaluation per Dr. De La Torre, order entered, noted, carried out.
--- NOTE | 2018-07-03 15:30 | Cardiac Electrophysiology PN ---
Assessment/Plan Assessment/Plan 1. Syncope in the patient with bradycardia. Not critically bradycardic with heart rate in 50s. History of paroxysmal atrial fibrillation. He is at risk of having sick sinus syndrome. Now better off Bystolic. EF 55% 2. Paroxysmal atrial fibrillation, on Xarelto 15 mg daily. 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 If Neuro eval is negative, Zio patch as out patient also can be considered 3. HTN On Hydralazine 25 tid 3. Parkinson disease. 4. History of prior CVA. 5. Renal failure. Creatinine 1.9 improved to 1.5. DW RN and son Dr. Joshua Perry [phone] and daughter in law extensively Subjective Subjective No CP or SOB. No seven overnight. In NSR Objective Last 24 Hour Vital Signs Date Time Temp Pulse Resp B/P (MAP) Pulse Ox O2 Delivery O2 Flow Rate FiO2 07/03/18 13:19 158/86 07/03/18 12:00 67 07/03/18 12:00 97.7 72 18 158/86 (110) 95 07/03/18 09:35 72 16 Room Air 21 07/03/18 09:35 Room Air 21 07/03/18 09:35 96 Room Air 21 07/03/18 09:01 Room Air 07/03/18 09:00 72 86 100 07/03/18 08:00 63 07/03/18 08:00 97.7 77 18 135/67 (89) 95 07/03/18 06:15 151/77 07/03/18 04:00 99.2 68 19 151/77 (101) 72 07/03/18 04:00 69 07/03/18 00:00 66 07/03/18 00:00 97.5 60 18 152/63 (92) 96 07/02/18 21:50 97 Room Air 21 07/02/18 21:50 59 16 Room Air 21 07/02/18 21:50 Room Air 21 07/02/18 21:21 152/73 07/02/18 21:00 76 07/02/18 21:00 Room Air 07/02/18 20:52 97.5 60 21 152/73 (99) 95 07/02/18 20:00 58 07/02/18 16:00 97.0 74 21 147/87 (107) 92 07/02/18 16:00 74 Intake and Output 07/02/18 07/03/18 19:00 07:00 Output Total 500 ml Balance -500 ml Output Urine Total 500 ml Laboratory Tests Test 07/03/18 07:57 White Blood Count 9.4 K/UL (4.8-10.8) Red Blood Count 5.57 M/UL (4.70-6.10) Hemoglobin 16.1 G/DL (14.2-18.0) Hematocrit 48.3 % (42.0-52.0) Mean Corpuscular Volume 87 FL (80-99) Mean Corpuscular Hemoglobin 28.8 PG (27.0-31.0) Mean Corpuscular Hemoglobin Concent 33.3 G/DL (32.0-36.0) Red Cell Distribution Width 13.9 % (11.6-14.8) Platelet Count 204 K/UL (150-450) Mean Platelet Volume 8.7 FL (6.5-10.1) Neutrophils (%) (Auto) 69.3 % (45.0-75.0) Lymphocytes (%) (Auto) 20.9 % (20.0-45.0) Monocytes (%) (Auto) 6.6 % (1.0-10.0) Eosinophils (%) (Auto) 2.3 % (0.0-3.0) Basophils (%) (Auto) 1.1 % (0.0-2.0) Sodium Level 141 MMOL/L (136-145) Potassium Level 3.8 MMOL/L (3.5-5.1) Chloride Level 107 MMOL/L (98-107) Carbon Dioxide Level 26 MMOL/L (21-32) Anion Gap 9 mmol/L (5-15) Blood Urea Nitrogen 22 mg/dL (7-18) H Creatinine 1.4 MG/DL (0.55-1.30) H Estimat Glomerular Filtration Rate mL/min (>60) Glucose Level 103 MG/DL (74-106) Calcium Level 9.3 MG/DL (8.5-10.1) Objective HEAD AND NECK: No JVD. LUNGS: Clear. CARDIOVASCULAR: Regular S1 and S2 with no gallop or murmur. ABDOMEN: Soft. EXTREMITIES: No pitting edema. Christiano Javier MD Jul 03, 2018 15:30
[2018-07-03 16:00] VITALS: BP 150/76
--- NOTE | 2018-07-03 17:11 | Diagnostic Imaging Report ---
Indication: Acute renal failure Technique: Grayscale and duplex images of the kidneys, retroperitoneum, and bladder were obtained. Comparison: none Findings: Right kidney measures 10.1 cm in length. Left kidney measures 11.3 cm in length. Both kidneys demonstrate normal echogenicity. No hydronephrosis. There are renal cysts bilaterally, larger and more numerous on the left.. Normal inferior vena cava. Bladder is normal, prevoid volume 260 mL. Patient did not wish to void at the time of exam. Calculated prostate volume is 40 mL. There is questionably a TURP defect. Impression: Negative for hydronephrosis Bilateral renal cysts incidentally noted 40 mL prostate volume.
--- NOTE | 2018-07-03 19:23 | Internal Med Progress Note ---
Subjective Date of Service: Jul 03, 2018 Physician Name Mendez,Jason Attending Physician Billy Sanders MD Current Medications Medications (Trade) Dose Ordered Sig/Sunni Route PRN Reason Start Time Stop Time Status Last Admin Dose Admin Acetaminophen (Tylenol) 650 mg Q4H PRN ORAL fever 06/29/18 14:30 07/29/18 14:29 Al Hydroxide/Mg Hydroxide (Mylanta II) 30 ml Q6H PRN ORAL dyspepsia 06/29/18 14:30 07/29/18 14:29 Albuterol/ Ipratropium (Albuterol/ Ipratropium) 3 ml Q4H PRN HHN Shortness of Breath 07/02/18 09:42 07/07/18 09:41 Carbidopa/Levodopa (Sinemet 25/100) 1 tab THREE TIMES A DAY ORAL 06/29/18 18:00 07/29/18 17:59 07/03/18 17:02 Dextrose (Dextrose 50%) 25 ml Q30M PRN IV Hypoglycemia 06/29/18 14:30 07/29/18 14:29 Dextrose (Dextrose 50%) 50 ml Q30M PRN IV Hypoglycemia 06/29/18 14:30 07/29/18 14:29 Hydralazine HCl (Apresoline) 25 mg EVERY 8 HOURS ORAL 07/01/18 22:00 07/31/18 11:44 07/03/18 13:19 Lorazepam (Ativan 2mg/ml 1ml) 0.5 mg Q4H PRN IV For Anxiety 06/29/18 14:30 07/06/18 14:29 Mirtazapine (Remeron) 15 mg BEDTIME ORAL 06/29/18 21:00 07/29/18 20:59 07/02/18 21:21 Morphine Sulfate (Morphine Sulfate) 1 mg Q4H PRN IVP For Pain 7-10 06/29/18 14:30 07/06/18 14:29 Nitroglycerin (Ntg) 0.4 mg Q5M X 3 DOSES PRN SL Prn Chest Pain 06/29/18 14:30 07/29/18 14:29 Ondansetron HCl (Zofran) 4 mg Q6H PRN IVP Nausea & Vomiting 06/29/18 14:30 07/29/18 14:29 Polyethylene Glycol (Miralax) 17 gm DAILYPRN PRN ORAL Constipation 06/30/18 17:00 07/30/18 16:59 Polyethylene Glycol (Miralax) 17 gm HSPRN PRN ORAL Constipation 06/29/18 14:30 07/29/18 14:29 06/30/18 17:08 Rivaroxaban (Xarelto) 15 mg DAILY ORAL 06/30/18 09:00 07/30/18 08:59 07/03/18 08:05 Temazepam (Restoril) 15 mg HSPRN PRN ORAL Insomnia 06/29/18 14:30 07/06/18 14:29 07/02/18 22:04 Allergies: Coded Allergies: No Known Allergies (Unverified , 06/29/18) ROS Limited/Unobtainable: No Constitutional: Reports: no symptoms HEENT: Reports: no symptoms Cardiovascular: Reports: no symptoms Respiratory: Reports: no symptoms Gastrointestinal/Abdominal: Reports: no symptoms Genitourinary: Reports: no symptoms Neurologic/Psychiatric: Reports: no symptoms Subjective 87 YO M admitted with syncope. Now sinus bradycardia. Cover for Int Med-Dr Sanders. Objective Last Vital Signs Date Time Temp Pulse Resp B/P (MAP) Pulse Ox O2 Delivery O2 Flow Rate FiO2 07/03/18 16:00 72 07/03/18 16:00 98.0 18 150/76 (100) 95 07/03/18 09:35 Room Air 21 Laboratory Tests Test 07/03/18 07:57 White Blood Count 9.4 K/UL (4.8-10.8) Red Blood Count 5.57 M/UL (4.70-6.10) Hemoglobin 16.1 G/DL (14.2-18.0) Hematocrit 48.3 % (42.0-52.0) Mean Corpuscular Volume 87 FL (80-99) Mean Corpuscular Hemoglobin 28.8 PG (27.0-31.0) Mean Corpuscular Hemoglobin Concent 33.3 G/DL (32.0-36.0) Red Cell Distribution Width 13.9 % (11.6-14.8) Platelet Count 204 K/UL (150-450) Mean Platelet Volume 8.7 FL (6.5-10.1) Neutrophils (%) (Auto) 69.3 % (45.0-75.0) Lymphocytes (%) (Auto) 20.9 % (20.0-45.0) Monocytes (%) (Auto) 6.6 % (1.0-10.0) Eosinophils (%) (Auto) 2.3 % (0.0-3.0) Basophils (%) (Auto) 1.1 % (0.0-2.0) Sodium Level 141 MMOL/L (136-145) Potassium Level 3.8 MMOL/L (3.5-5.1) Chloride Level 107 MMOL/L (98-107) Carbon Dioxide Level 26 MMOL/L (21-32) Anion Gap 9 mmol/L (5-15) Blood Urea Nitrogen 22 mg/dL (7-18) H Creatinine 1.4 MG/DL (0.55-1.30) H Estimat Glomerular Filtration Rate mL/min (>60) Glucose Level 103 MG/DL (74-106) Calcium Level 9.3 MG/DL (8.5-10.1) Intake and Output 07/02/18 07/03/18 19:00 07:00 Output Total 500 ml Balance -500 ml Output Urine Total 500 ml Objective PHYSICAL EXAMINATION: GENERAL: The patient is well-developed, well-nourished white male, in no apparent distress. HEENT: Eyes, pupils are equal and responsive to light and accommodation. Extraocular movements are intact. NECK: Supple without lymphadenopathy. CHEST: Lungs are clear to auscultation bilaterally without wheezes or rales. CARDIOVASCULAR: Regular rate. S1-S2 are normal without murmurs, rubs, or gallops. ABDOMEN: Soft, nontender, nondistended. Positive bowel sounds. No evidence of hepatosplenomegaly. Currently, no rebound or guarding noted. EXTREMITIES: Negative for clubbing, cyanosis, or edema. RECTAL/GENITAL: Refused. NEUROLOGIC: Cranial II through XII are grossly intact without focal deficits. Motor strength is 5/5 bilaterally. Deep tendon reflexes are 2+ plantar. Assessment/Plan Assessment/Plan ASSESSMENT: This is an 87-year-old white male. 1. Syncopal episode. 2. Bradycardia. 3. Hypertension. 4. Parkinson disease. 5. Hypercholesterolemia. TREATMENT: 1. Syncopal episode. See Cardiology consultation with Dr. Javier. D/C bystwilmer. May require pacemaker 2. Hypertension. D/C Bystolic as above. 3. Parkinson disease. Continue Sinemet as above. 4. Hypercholesteremia. Continue rosuvastatin as above. 5. Pending carotid dopplers and MRI brain Jason Mendez MD Jul 03, 2018 19:23
--- NOTE | 2018-07-03 19:31 | NUR ---
HAND-OFF: Report given to BELEN Scott.
--- NOTE | 2018-07-03 19:39 | NUR ---
NURSE NOTES: Received report from BELEN Heard. Patient is awake lying semi-medina's; resting comfortably. No signs of acute distress noted; denies pain at this time. AOx3-4; able to make needs known. Primarily Bangladeshi speaking. Ambulates with assistance. Checked IV site; patent and flushed. No erythema, bleeding, or infiltration noted. Bed at lowest position, brakes on, siderails up x3. Call light within reach. Will continue to monitor.
[2018-07-03 20:00] VITALS: BP 162/84
--- NOTE | 2018-07-03 21:03 | NUR ---
NURSE NOTES: Received consent from patient for MRI of the brain with possible contrast. Inquired patient if he has any allergies to contrast. Per patient, as far as he knows, "no."
[2018-07-04] VITALS: BP 133/54
--- NOTE | 2018-07-04 00:38 | Physician Query ---
--------- THIS DOCUMENT IS A PERMANENT PART OF THE MEDICAL RECORD --------- PLEASE COMPLETE THE DOCUMENT BEFORE SIGNING Dear Dr. Keith REINA Date: 07/04/18 Trust Mail Clerk/CDS Name: Jasper BEACH Trust Mail Clerk / CDS Phone # Exercise your independent professional judgment when responding to query. Question asked do not imply a particular answer is desired/expected Clinical Documentation States: "Syncope" documented in H&P "Syncope in the patient with bradycardia." -- documented in Dr. Javier's consultation note Cardiology consultation Please specify the cause: [] Autonomic Imbalance [] Autonomic Dysfunction [X] Orthostatic Hypotension [] Psychogenic [] Shock [] Dehydration [] Dialysis Disequilibrium Syndrome [] Heat [] Other: [] Unable to determine Condition Present on Admission: [] Yes [] No [] Clinically Undeterminable Please also document in your Progress Notes and/or Discharge Summary and indicate if the condition was present on admission. Jason Reina M.D. DATE & TIME [facility]
[2018-07-04 04:00] VITALS: BP 165/77
--- NOTE | 2018-07-04 04:00 | Consultation ---
DATE OF CONSULTATION: 07/03/2018 CHIEF COMPLAINT: This is an 87-year-old right-handed white man with a history of hypertension and paroxysmal atrial fibrillation, on Xarelto. He also has a history of Parkinson's disease and had a stroke in 2018. The patient apparently had one syncopal episode. The patient had one while using a walker. The patient apparently just the ground. Apparently, he is on Sinemet. He sees a neurologist at [facility]. The patient did not have a head injury. In fact, he denies any headaches, shortness of breath, chest pain, diaphoresis. There is black out. He has never had any seizures or epilepsy. He did not just go to the bathroom before his blackout spells. His appetite has been good. The patient does not drink alcohol. Never smokes cigarettes. No known family history of neurologic disease. PAST MEDICAL HISTORY: PAST MEDICAL ILLNESSES: 1. Hypertension with hypertensive heart disease and paroxysmal atrial fibrillation. 2. History of Parkinson's disease, on Sinemet. On this admission, he is on 25/100 mg t.i.d. 3. History of stroke in 2018. FAMILY HISTORY: Family history is noncontributory. SOCIAL HISTORY: Patient lives at home. 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 REVIEW OF SYSTEMS: Appetite is good. I cannot have him tell me his weight. The rest of the review of systems is noncontributory. PHYSICAL EXAMINATION: GENERAL: He is a well-developed, well-nourished, overweight man lying in bed, in no acute distress. VITAL SIGNS: Pulse rate is 72 and regular, temperature is 98 degrees, respiration rate is 18, blood pressure 150/76, pulse oximetry is 95 on room air. HEENT: Examination of head, ears, eyes, nose, mouth and throat reveals no significant lesions. NECK: Neck is supple. Carotids are at least +1. I could not hear any bruits. LUNGS: Clear to auscultation. CARDIOVASCULAR: PMI could not be felt. JVP were not well visualized. The patient had normal S1, S2 is physiologically split. There is no S3, S4, murmurs or rubs appreciated. ABDOMEN: Bowel sounds are intact, in fact they are probably hyperactive. There is no tenderness, masses or organomegaly. BACK: There is no tenderness to percussion. EXTREMITIES: He has some abrasions in the lower legs. He had erythematous area on both large toes and the right side was slightly tender. The peripheral pulses are +2 in the upper extremities, +2 dorsalis pedis pulses. NEUROLOGIC EXAMINATION: Mental status is difficult to get because of lack of understanding and hearing loss. He knew the date. He was alert and awake. He knew the date was July 03, 2018. Place, he knew he is in [facility]. He is oriented to person. His affect is appropriate. Memory could not be tested. Intellect could not be tested. He did follow commands and cooperate with the physical examination. CRANIAL NERVE EXAMINATION: CRANIAL NERVE II: Visual wynn are intact to confrontation. CRANIAL NERVES III, IV, AND : Extraocular motility was full. CRANIAL NERVE V: Facial and corneal sensation appear to be intact to light touch. CRANIAL NERVE VII: Facial strength appeared to be symmetrical bilaterally. CRANIAL NERVE VIII: Had significantly decreased right auditory acuity. His left auditory acuity was also decreased, probably better than his right. CRANIAL NERVES IX AND X: Gag is intact bilaterally. CRANIAL NERVE XI: Sternocleidomastoid strength is 5/5. CRANIAL NERVE XII: Tongue protrudes in the midline without fasciculations or atrophy. MUSCULOSKELETAL: Muscle bulk symmetrically decreased and tone reveals paratonia bilaterally. Strength is 5/5 grossly. Reflexes are 0 in the upper and lower extremities with downgoing toes and testing for Babinski response. Coordination, [id number] is basically intact. I could not get him to do [id number] testing. Gait and station was not tested. Sensory examination deep tendon is intact. Pinprick was probably intact, but he had a little confusion between fine touch and pinprick. Proprioception and vibration could not be done. LABORATORY DATA: CBC on admission revealed a white count of 8800 and a hemoglobin of 14.8 and with normochromic normocytic indices. His platelet count was 188,000, has remained normal. Chemistry on admission was normal except for BUN of 25 with a creatinine of 1.9 and glucose of 154. His natriuretic peptide was 1604. Troponin was 0.018. CPK was 74. Total uric acid was 4.9. B-natriuretic peptide decreased to 925. His BUN and creatinine are 22 and 1.4. Calcium has been normal. Free T4 is 1.08 with a TSH of 0.513. His albumin is low at 3.3. HDL cholesterol is high at 69. Electrocardiogram on admission reveals left ventricular hypertrophy with repolarization abnormality. 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 Chest x-ray on June 29, 2018 revealed marked cardiomegaly and evidence of old granulomatous disease of the right leg base. He also had a massive hiatal hernia. Renal ultrasound today was negative for hydronephrosis. He had bilateral renal cysts incidentally noted. There is a questionable transurethral resection of prostate defect. IMPRESSION: The patient had a cardiogenic syncopal episode arrhythmia. He was dehydrated. He does have other risk factors for syncope. There are no obvious other symptoms with his syncopal attack seizures. The patient with previous paroxysmal atrial fibrillation and his bradycardia, it is my opinion he will probably need further cardiac workup. The patient's ejection fraction was 55%. The patient can probably go home if it is okay with Dr. Javier. There is no evidence of a new stroke. The patient apparently has a history of Parkinson's disease, although he does not have much in the way of tremor at least on my examination at this time. Parkinson's disease can be associated with episodes of hypertension. PLAN: Discharge the patient, he needs cardiac followup. Thank you for this interesting case, Dr. Billy Sanders. Larry Leavitt MD DR: Sujatha JOB#: [id number] CC:
--- NOTE | 2018-07-04 04:21 | NUR ---
NURSE NOTES: Patient is asleep lying semi-medina's; resting comfortably. No signs of acute distress or pain noted at this time.
[2018-07-04] MEDS: HydrALAZINE 25mg tab ORAL SCH ×3 (05:20→20:58)
--- NOTE | 2018-07-04 06:04 | NUR ---
NURSE NOTES: Called Dr. De La Torre regarding patient's request for Mucinex Max with cough suppressant. Awaiting callback.
--- NOTE | 2018-07-04 07:35 | NUR ---
HAND-OFF: Report given to BELEN Garrison. Patient is awake lying semi-medina's; resting comfortably. In stable condition.
--- NOTE | 2018-07-04 07:36 | NUR ---
NURSE NOTES: Received report from BELEN Scott . Pt is resting in bed in semi-medina position a/o x 4, eating her breakfast. No signs and symptoms of acute distress at this time. Denies pain at present. Patient is asking for cough medication. Bed in lowest position with two side rails up, break engaged. Bed side table and bed alarm within reach. Will continue to monitor.
[2018-07-04 07:42] LABS: BASOPHILS % (AUTO) 0.8 % (0.0-2.0); EOSINOPHILS % (AUTO) 3.1 % (0.0-3.0); HEMOGLOBIN 15.4 G/DL (14.2-18.0); LYMPHOCYTES % (AUTO) 18.2 % (20.0-45.0); MEAN CORPUSCULAR VOLUME 87 FL (80-99); MONOCYTES % (AUTO) 8.2 % (1.0-10.0); NEUTROPHILS % (AUTO) 69.8 % (45.0-75.0); PLATELET COUNT 172 K/UL (150-450); WHITE BLOOD COUNT 8.1 K/UL (4.8-10.8)
[2018-07-04 07:48] LABS: ANION GAP 10 mmol/L (5-15); BLOOD UREA NITROGEN 22 mg/dL (7-18); CALCIUM 9.1 MG/DL (8.5-10.1); CARBON DIOXIDE 23 MMOL/L (21-32); CHLORIDE 108 MMOL/L (98-107); CREATININE 1.2 MG/DL (0.55-1.30); SODIUM 141 MMOL/L (136-145)
--- NOTE | 2018-07-04 07:58 | NUR ---
NURSE NOTES: Received new order from Dr. De La Torre. Noted and carried out.
[2018-07-04 08:00] VITALS: BP 123/70
[2018-07-04] MEDS ORDERED: guaiFENesin ER 600mg tab ORAL PRN (08:00)
[2018-07-04] MEDS: Levodopa/Carbidopa 25/100 tab ORAL SCH ×4 (08:19→17:49)
[2018-07-04] MEDS: Xarelto 15mg tab ORAL SCH (08:19)
--- NOTE | 2018-07-04 08:30 | NUR ---
NURSE NOTES: Called and left a massage for Dr. Leavitt to verify that MRI Brain needs to be with Contrast or not? (two different order in the system, one with and the other one without contrast).
--- NOTE | 2018-07-04 10:28 | Diagnostic Imaging Report ---
APPROVED REPORT CPT Code: 37626 Vascular Symptoms Syncope Comments: SYNCOPE. Doppler Spectral Velocity Analysis RightLeft RIGHT SIDE: CCA/ECA - Imaging reveals no significant plaque in the common carotid and external carotid arteries. ICA/BULB - Imaging reveals irregular plaque in the bulb and internal carotid artery. The Doppler signal indicates the degree of stenosis is moderate (50%) in the internal carotid artery.VERTEBRAL - The vertebral artery is patent, without evidence of stenosis or steal. LEFT SIDE: CCA - Imaging reveals no significant plaque in the common carotid artery. ICA/ECA/BULB - Imaging reveals irregular plaque in the bulb, internal and external carotid arteries. The Doppler signal indicates the degree of stenosis is moderate (40%) in the internal carotid artery.the degree of stenosis is minimal (5%) in the external carotid artery. VERTEBRAL - The vertebral artery is patent, without evidence of stenosis or steal.
--- NOTE | 2018-07-04 10:50 | Pulmonology Progress Note ---
Assessment/Plan Problems: (1) Acute encephalopathy (2) ATN (acute tubular necrosis) (3) Cardiomegaly (4) Parkinson disease (5) Chronic anticoagulation Assessment/Plan heart rate better after stopping Bystolic echocardiogram, EF 55% renal studies pending monitor heart rate neuro evaluation dvt prophylaxis. start pt/ot DC home when cleared by Cardiology Subjective ROS Limited/Unobtainable: No Interval Events: MRI done this morning Allergies: Coded Allergies: No Known Allergies (Unverified , 06/29/18) Objective Last 24 Hour Vital Signs Date Time Temp Pulse Resp B/P (MAP) Pulse Ox O2 Delivery O2 Flow Rate FiO2 07/04/18 05:20 165/77 07/04/18 04:00 62 07/04/18 04:00 97.3 68 18 165/77 (106) 93 07/04/18 00:00 73 07/04/18 00:00 98.4 62 18 133/54 (80) 93 07/03/18 22:47 66 18 Room Air 21 07/03/18 22:47 Room Air 21 07/03/18 22:47 94 Room Air 21 07/03/18 21:26 162/84 07/03/18 21:10 99 07/03/18 21:05 91 07/03/18 21:00 Room Air 07/03/18 21:00 78 07/03/18 20:00 88 07/03/18 20:00 99.2 78 20 162/84 (110) 94 07/03/18 16:00 72 07/03/18 16:00 98.0 71 18 150/76 (100) 95 07/03/18 13:19 158/86 07/03/18 12:00 67 07/03/18 12:00 97.7 72 18 158/86 (110) 95 Intake and Output 07/03/18 07/04/18 18:59 06:59 Intake Total 500 ml 120 ml Output Total 250 ml 300 ml Balance 250 ml -180 ml Intake Oral 500 ml 120 ml Output Urine Total 250 ml 300 ml # Voids 2 General Appearance: WD/WN HEENT: normocephalic, atraumatic, anicteric Respiratory/Chest: chest wall non-tender, lungs clear Cardiovascular: normal peripheral pulses, normal rate Abdomen: normal bowel sounds, soft, non tender Genitourinary: normal external genitalia Extremities: no cyanosis Skin: no rash Neurologic/Psychiatric: immigration associate II-XII grossly normal Lymphatic: no neck adenopathy Laboratory Tests 07/04/18 06:11: White Blood Count 8.1, Red Blood Count 5.40, Hemoglobin 15.4, Hematocrit 47.0, Mean Corpuscular Volume 87, Mean Corpuscular Hemoglobin 28.5, Mean Corpuscular Hemoglobin Concent 32.7, Red Cell Distribution Width 14.0, Platelet Count 172, Mean Platelet Volume 8.7, Neutrophils (%) (Auto) 69.8, Lymphocytes (%) (Auto) 18.2L, Monocytes (%) (Auto) 8.2, Eosinophils (%) (Auto) 3.1H, Basophils (%) ( Auto) 0.8, Sodium Level 141, Potassium Level 4.0, Chloride Level 108H, Carbon Dioxide Level 23, Anion Gap 10, Blood Urea Nitrogen 22H, Creatinine 1.2, Estimat Glomerular Filtration Rate , Glucose Level 87, Calcium Level 9.1 Current Medications Medications (Trade) Dose Ordered Sig/Sunni Route PRN Reason Start Time Stop Time Status Last Admin Dose Admin Acetaminophen (Tylenol) 650 mg Q4H PRN ORAL fever 06/29/18 14:30 07/29/18 14:29 Al Hydroxide/Mg Hydroxide (Mylanta II) 30 ml Q6H PRN ORAL dyspepsia 06/29/18 14:30 07/29/18 14:29 Albuterol/ Ipratropium (Albuterol/ Ipratropium) 3 ml Q4H PRN HHN Shortness of Breath 07/02/18 09:42 07/07/18 09:41 Carbidopa/Levodopa (Sinemet 25/100) 1 tab THREE TIMES A DAY ORAL 06/29/18 18:00 07/29/18 17:59 07/04/18 08:19 Dextrose (Dextrose 50%) 25 ml Q30M PRN IV Hypoglycemia 06/29/18 14:30 07/29/18 14:29 Dextrose (Dextrose 50%) 50 ml Q30M PRN IV Hypoglycemia 06/29/18 14:30 07/29/18 14:29 Guaifenesin (Mucinex ER) 600 mg BIDPRN PRN ORAL For Cough 07/04/18 08:00 08/03/18 07:59 07/04/18 08:19 Hydralazine HCl (Apresoline) 25 mg EVERY 8 HOURS ORAL 07/01/18 22:00 07/31/18 11:44 07/04/18 05:20 Lorazepam (Ativan 2mg/ml 1ml) 0.5 mg Q4H PRN IV For Anxiety 06/29/18 14:30 07/06/18 14:29 Mirtazapine (Remeron) 15 mg BEDTIME ORAL 06/29/18 21:00 07/29/18 20:59 07/03/18 21:25 Morphine Sulfate (Morphine Sulfate) 1 mg Q4H PRN IVP For Pain 706/29/18 14:30 07/06/18 14:29 Nitroglycerin (Ntg) 0.4 mg Q5M X 3 DOSES PRN SL Prn Chest Pain 06/29/18 14:30 07/29/18 14:29 Ondansetron HCl (Zofran) 4 mg Q6H PRN IVP Nausea & Vomiting 06/29/18 14:30 07/29/18 14:29 Polyethylene Glycol (Miralax) 17 gm DAILYPRN PRN ORAL Constipation 06/30/18 17:00 07/30/18 16:59 Polyethylene Glycol (Miralax) 17 gm HSPRN PRN ORAL Constipation 06/29/18 14:30 07/29/18 14:29 06/30/18 17:08 Rivaroxaban (Xarelto) 15 mg DAILY ORAL 06/30/18 09:00 07/30/18 08:59 07/04/18 08:19 Temazepam (Restoril) 15 mg HSPRN PRN ORAL Insomnia 06/29/18 14:30 07/06/18 14:29 07/02/18 22:04 Petey De La Torre MD Jul 04, 2018 10:50
[2018-07-04] MEDS ORDERED: HYDRALAZINE HCL25 M1 ORAL (10:52)
--- NOTE | 2018-07-04 11:01 | Cardiac Electrophysiology PN ---
Assessment/Plan Assessment/Plan 1. Syncope in the patient with bradycardia. Not critically bradycardic with heart rate in 50s. History of paroxysmal atrial fibrillation. He is at risk of having sick sinus syndrome. Keep off Bystolic. EF 55% Had MRI of Brain today 2. Paroxysmal atrial fibrillation, on Xarelto 15 mg daily. 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 If Neuro eval is negative, Zio patch as out patient at my office. 3. HTN On Hydralazine 25 tid 3. Parkinson disease. 4. History of prior CVA. 5. Renal failure. Creatinine 1.9 improved to 1.5. NOEMY RN and son Dr. Joshua Perry NOEMY De La Torre Subjective Subjective No CP or SOB. No seven overnight. In NSR. at bedside. just had MRI brain today Objective Last 24 Hour Vital Signs Date Time Temp Pulse Resp B/P (MAP) Pulse Ox O2 Delivery O2 Flow Rate FiO2 07/04/18 05:20 165/77 07/04/18 04:00 62 07/04/18 04:00 97.3 68 18 165/77 (106) 93 07/04/18 00:00 73 07/04/18 00:00 98.4 62 18 133/54 (80) 93 07/03/18 22:47 66 18 Room Air 21 07/03/18 22:47 Room Air 21 07/03/18 22:47 94 Room Air 21 07/03/18 21:26 162/84 07/03/18 21:10 99 07/03/18 21:05 91 07/03/18 21:00 Room Air 07/03/18 21:00 78 07/03/18 20:00 88 07/03/18 20:00 99.2 78 20 162/84 (110) 94 07/03/18 16:00 72 07/03/18 16:00 98.0 71 18 150/76 (100) 95 07/03/18 13:19 158/86 07/03/18 12:00 67 07/03/18 12:00 97.7 72 18 158/86 (110) 95 Intake and Output 07/03/18 07/04/18 18:59 06:59 Intake Total 500 ml 120 ml Output Total 250 ml 300 ml Balance 250 ml -180 ml Intake Oral 500 ml 120 ml Output Urine Total 250 ml 300 ml # Voids 2 Laboratory Tests Test 07/04/18 06:11 White Blood Count 8.1 K/UL (4.8-10.8) Red Blood Count 5.40 M/UL (4.70-6.10) Hemoglobin 15.4 G/DL (14.2-18.0) Hematocrit 47.0 % (42.0-52.0) Mean Corpuscular Volume 87 FL (80-99) Mean Corpuscular Hemoglobin 28.5 PG (27.0-31.0) Mean Corpuscular Hemoglobin Concent 32.7 G/DL (32.0-36.0) Red Cell Distribution Width 14.0 % (11.6-14.8) Platelet Count 172 K/UL (150-450) Mean Platelet Volume 8.7 FL (6.5-10.1) Neutrophils (%) (Auto) 69.8 % (45.0-75.0) Lymphocytes (%) (Auto) 18.2 % (20.0-45.0) L Monocytes (%) (Auto) 8.2 % (1.0-10.0) Eosinophils (%) (Auto) 3.1 % (0.0-3.0) H Basophils (%) (Auto) 0.8 % (0.0-2.0) Sodium Level 141 MMOL/L (136-145) Potassium Level 4.0 MMOL/L (3.5-5.1) Chloride Level 108 MMOL/L (98-107) H Carbon Dioxide Level 23 MMOL/L (21-32) Anion Gap 10 mmol/L (5-15) Blood Urea Nitrogen 22 mg/dL (7-18) H Creatinine 1.2 MG/DL (0.55-1.30) Estimat Glomerular Filtration Rate mL/min (>60) Glucose Level 87 MG/DL (74-106) Calcium Level 9.1 MG/DL (8.5-10.1) Objective HEAD AND NECK: No JVD. LUNGS: Clear. CARDIOVASCULAR: Regular S1 and S2 with no gallop or murmur. ABDOMEN: Soft. EXTREMITIES: No pitting edema. Christiano Javier MD Jul 04, 2018 11:01
--- NOTE | 2018-07-04 11:08 | Diagnostic Imaging Report ---
Indication: Syncope Technique: sagittal T1 fast spin echo, axial T1 FLAIR, axial T2 FLAIR, axial T2 FS PROPELLER, axial T2* GRE, axial diffusion weighted images. ADC and exponential ADC maps generated Comparison: Head CT 06/29/2018 Findings: No abnormal areas of restricted diffusion to suggest acute infarction. No acute hemorrhage or edema. No mass effect nor midline shift. There is age-related enlargement of the ventricles and extra axial CSF spaces. Old lacunar infarcts are seen in the left cerebellar hemisphere and brachium pontis, also described on recent CT scan. There is considerable periventricular deep white matter T2 signal, consistent with chronic microvascular ischemic changes. The left vertebral artery is tortuous and somewhat ectatic, and indents the anterior aspect of the medulla. There is also a slight kink in the medulla, without definite positive mass lesion. Orbits demonstrate evidence of prior bilateral cataract surgery. There is opacification of the left sphenoid sinus and and mucosal disease of multiple ethmoid air cells. Impression: Negative for acute intracranial bleed, mass effect, or infarct Chronic and age-related changes, as described Sinus disease Findings discussed by phone with Dr. De La Torre at the time of interpretation
[2018-07-04 12:00] VITALS: BP 135/65
--- NOTE | 2018-07-04 15:00 | NUR ---
NURSE NOTES: Called and left a massage for case therapist regarding the rehab plan for patient.
--- NOTE | 2018-07-04 15:03 | NUR ---
DISCHARGE PLANNING PATIENT HAS BEEN REFERRED TO [facility] [place] T: [phone] F: [phone] CALLED AND SPOKE WITH LIAISON, DORETHA. SHE WILL REVIEW THE CLINICALS, CHECK THE INSURANCE AND CALL BACK. [facility] WILL NOT ACCEPT PATIENT UNTIL TOMORROW
[2018-07-04 16:00] VITALS: BP 146/75
--- NOTE | 2018-07-04 16:16 | Internal Med Progress Note ---
Subjective Date of Service: Jul 04, 2018 Physician Name MendezJason tejada Attending Physician Billy Sanders MD Current Medications Medications (Trade) Dose Ordered Sig/Sunni Route PRN Reason Start Time Stop Time Status Last Admin Dose Admin Acetaminophen (Tylenol) 650 mg Q4H PRN ORAL fever 06/29/18 14:30 07/29/18 14:29 Al Hydroxide/Mg Hydroxide (Mylanta II) 30 ml Q6H PRN ORAL dyspepsia 06/29/18 14:30 07/29/18 14:29 Albuterol/ Ipratropium (Albuterol/ Ipratropium) 3 ml Q4H PRN HHN Shortness of Breath 07/02/18 09:42 07/07/18 09:41 Carbidopa/Levodopa (Sinemet 25/100) 1 tab THREE TIMES A DAY ORAL 06/29/18 18:00 07/29/18 17:59 07/04/18 13:44 Dextrose (Dextrose 50%) 25 ml Q30M PRN IV Hypoglycemia 06/29/18 14:30 07/29/18 14:29 Dextrose (Dextrose 50%) 50 ml Q30M PRN IV Hypoglycemia 06/29/18 14:30 07/29/18 14:29 Guaifenesin (Mucinex ER) 600 mg BIDPRN PRN ORAL For Cough 07/04/18 08:00 08/03/18 07:59 07/04/18 08:19 Hydralazine HCl (Apresoline) 25 mg EVERY 8 HOURS ORAL 07/01/18 22:00 07/31/18 11:44 07/04/18 13:44 Lorazepam (Ativan 2mg/ml 1ml) 0.5 mg Q4H PRN IV For Anxiety 06/29/18 14:30 07/06/18 14:29 Mirtazapine (Remeron) 15 mg BEDTIME ORAL 06/29/18 21:00 07/29/18 20:59 07/03/18 21:25 Morphine Sulfate (Morphine Sulfate) 1 mg Q4H PRN IVP For Pain 706/29/18 14:30 07/06/18 14:29 Nitroglycerin (Ntg) 0.4 mg Q5M X 3 DOSES PRN SL Prn Chest Pain 06/29/18 14:30 07/29/18 14:29 Ondansetron HCl (Zofran) 4 mg Q6H PRN IVP Nausea & Vomiting 06/29/18 14:30 07/29/18 14:29 Polyethylene Glycol (Miralax) 17 gm DAILYPRN PRN ORAL Constipation 06/30/18 17:00 07/30/18 16:59 Polyethylene Glycol (Miralax) 17 gm HSPRN PRN ORAL Constipation 06/29/18 14:30 07/29/18 14:29 06/30/18 17:08 Rivaroxaban (Xarelto) 15 mg DAILY ORAL 06/30/18 09:00 07/30/18 08:59 07/04/18 08:19 Temazepam (Restoril) 15 mg HSPRN PRN ORAL Insomnia 06/29/18 14:30 07/06/18 14:29 07/02/18 22:04 Allergies: Coded Allergies: No Known Allergies (Unverified , 06/29/18) ROS Limited/Unobtainable: No Constitutional: Reports: no symptoms HEENT: Reports: no symptoms Cardiovascular: Reports: no symptoms Respiratory: Reports: no symptoms Gastrointestinal/Abdominal: Reports: no symptoms Genitourinary: Reports: no symptoms Neurologic/Psychiatric: Reports: no symptoms Subjective 87 YO M admitted with syncope. Now sinus bradycardia. Cover for Int Med-Dr Sanders. Objective Last Vital Signs Date Time Temp Pulse Resp B/P (MAP) Pulse Ox O2 Delivery O2 Flow Rate FiO2 07/04/18 13:44 135/65 07/04/18 13:00 77 07/04/18 12:00 97.9 20 94 07/04/18 09:00 Room Air Room Air 07/04/18 07:14 21 Laboratory Tests Test 07/04/18 06:11 White Blood Count 8.1 K/UL (4.8-10.8) Red Blood Count 5.40 M/UL (4.70-6.10) Hemoglobin 15.4 G/DL (14.2-18.0) Hematocrit 47.0 % (42.0-52.0) Mean Corpuscular Volume 87 FL (80-99) Mean Corpuscular Hemoglobin 28.5 PG (27.0-31.0) Mean Corpuscular Hemoglobin Concent 32.7 G/DL (32.0-36.0) Red Cell Distribution Width 14.0 % (11.6-14.8) Platelet Count 172 K/UL (150-450) Mean Platelet Volume 8.7 FL (6.5-10.1) Neutrophils (%) (Auto) 69.8 % (45.0-75.0) Lymphocytes (%) (Auto) 18.2 % (20.0-45.0) L Monocytes (%) (Auto) 8.2 % (1.0-10.0) Eosinophils (%) (Auto) 3.1 % (0.0-3.0) H Basophils (%) (Auto) 0.8 % (0.0-2.0) Sodium Level 141 MMOL/L (136-145) Potassium Level 4.0 MMOL/L (3.5-5.1) Chloride Level 108 MMOL/L (98-107) H Carbon Dioxide Level 23 MMOL/L (21-32) Anion Gap 10 mmol/L (5-15) Blood Urea Nitrogen 22 mg/dL (7-18) H Creatinine 1.2 MG/DL (0.55-1.30) Estimat Glomerular Filtration Rate mL/min (>60) Glucose Level 87 MG/DL (74-106) Calcium Level 9.1 MG/DL (8.5-10.1) Intake and Output 07/03/18 07/04/18 19:00 07:00 Intake Total 500 ml 120 ml Output Total 250 ml 300 ml Balance 250 ml -180 ml Intake Oral 500 ml 120 ml Output Urine Total 250 ml 300 ml # Voids 2 Objective PHYSICAL EXAMINATION: GENERAL: The patient is well-developed, well-nourished white male, in no apparent distress. HEENT: Eyes, pupils are equal and responsive to light and accommodation. Extraocular movements are intact. NECK: Supple without lymphadenopathy. CHEST: Lungs are clear to auscultation bilaterally without wheezes or rales. CARDIOVASCULAR: Regular rate. S1-S2 are normal without murmurs, rubs, or gallops. ABDOMEN: Soft, nontender, nondistended. Positive bowel sounds. No evidence of hepatosplenomegaly. Currently, no rebound or guarding noted. EXTREMITIES: Negative for clubbing, cyanosis, or edema. RECTAL/GENITAL: Refused. NEUROLOGIC: Cranial II through XII are grossly intact without focal deficits. Motor strength is 5/5 bilaterally. Deep tendon reflexes are 2+ plantar. Assessment/Plan Assessment/Plan ASSESSMENT: This is an 87-year-old white male. 1. Syncopal episode. 2. Bradycardia. 3. Hypertension. 4. Parkinson disease. 5. Hypercholesterolemia. TREATMENT: 1. Syncopal episode. See Cardiology consultation with Dr. Javier. D/C bystolic. May require pacemaker 2. Hypertension. D/C Bystolic as above. 3. Parkinson disease. Continue Sinemet as above. 4. Hypercholesteremia. Continue rosuvastatin as above. 5. Pending carotid dopplers and MRI brain 6. Discharge to [facility] when bed available. Jason Mendez MD Jul 04, 2018 16:16
--- NOTE | 2018-07-04 19:24 | NUR ---
HAND-OFF: Report given to BELEN Ashley.
--- NOTE | 2018-07-04 19:25 | NUR ---
NURSE NOTES: Received report from BELEN Hirsch. Patient in bed awake showing now signs of acute distress. AOx4 Respiration even and non labored on room air. No SOB. Vitals stable. IV patent and intact. Call light within reach. Bed in lowest position. All needs attended and met. Will continue to monitor.
[2018-07-04 20:00] VITALS: BP 137/70
[2018-07-05] VITALS: BP 152/68
[2018-07-05 04:00] VITALS: BP 122/74
[2018-07-05] MEDS: HydrALAZINE 25mg tab ORAL SCH (06:05)
[2018-07-05] MEDS: Miralax 17gm pkt ORAL PRN ×2 (06:13→09:39)
[2018-07-05 07:29] LABS: ANION GAP 9 mmol/L (5-15); BLOOD UREA NITROGEN 22 mg/dL (7-18); CALCIUM 9.3 MG/DL (8.5-10.1); CARBON DIOXIDE 26 MMOL/L (21-32); CHLORIDE 107 MMOL/L (98-107); CREATININE 1.3 MG/DL (0.55-1.30); POTASSIUM 4.2 MMOL/L (3.5-5.1); SODIUM 142 MMOL/L (136-145)
--- NOTE | 2018-07-05 07:46 | NUR ---
HAND-OFF: Report given to BELEN Don.
[2018-07-05 07:55] LABS: BASOPHILS % (AUTO) 1.4 % (0.0-2.0); EOSINOPHILS % (AUTO) 2.8 % (0.0-3.0); HEMOGLOBIN 14.6 G/DL (14.2-18.0); LYMPHOCYTES % (AUTO) 20.6 % (20.0-45.0); MEAN CORPUSCULAR VOLUME 87 FL (80-99); MONOCYTES % (AUTO) 6.6 % (1.0-10.0); NEUTROPHILS % (AUTO) 68.6 % (45.0-75.0); PLATELET COUNT 197 K/UL (150-450); RED BLOOD COUNT 5.03 M/UL (4.70-6.10); RED CELL DISTRIBUTION WIDTH 13.7 % (11.6-14.8); WHITE BLOOD COUNT 9.5 K/UL (4.8-10.8)
--- NOTE | 2018-07-05 09:18 | NUR ---
CARDIOLOGY technology services manager Julio Cesar came 7:30 pm July 04 2018 but pt refused the EEG test
[2018-07-05] MEDS: Xarelto 15mg tab ORAL SCH (09:39)
[2018-07-05] MEDS: Levodopa/Carbidopa 25/100 tab ORAL SCH (09:40)
--- NOTE | 2018-07-05 10:47 | NUR ---
DISCHARGE PLANNED PATIENT WILL DISCHARGE TO [facility] ROOM [address] T [phone] FOR NURSE TO NURSE REPORT [facility] HAS BEEN ARRANGED FOR 1230 GASFITTER SPOKE WITH PATIENT AT BEDSIDE AND HE IS IN AGREEMENT WITH DISCHARGE PLAN
--- NOTE | 2018-07-05 11:19 | Internal Med Progress Note ---
Subjective Date of Service: Jul 05, 2018 Physician Name Jason Mendez Attending Physician Billy Sanders MD Current Medications Medications (Trade) Dose Ordered Sig/Sunni Route PRN Reason Start Time Stop Time Status Last Admin Dose Admin Acetaminophen (Tylenol) 650 mg Q4H PRN ORAL fever 06/29/18 14:30 07/29/18 14:29 Al Hydroxide/Mg Hydroxide (Mylanta II) 30 ml Q6H PRN ORAL dyspepsia 06/29/18 14:30 07/29/18 14:29 07/05/18 06:13 Albuterol/ Ipratropium (Albuterol/ Ipratropium) 3 ml Q4H PRN HHN Shortness of Breath 07/02/18 09:42 07/07/18 09:41 Carbidopa/Levodopa (Sinemet 25/100) 1 tab THREE TIMES A DAY ORAL 06/29/18 18:00 07/29/18 17:59 07/05/18 09:40 Dextrose (Dextrose 50%) 25 ml Q30M PRN IV Hypoglycemia 06/29/18 14:30 07/29/18 14:29 Dextrose (Dextrose 50%) 50 ml Q30M PRN IV Hypoglycemia 06/29/18 14:30 07/29/18 14:29 Guaifenesin (Mucinex ER) 600 mg BIDPRN PRN ORAL For Cough 07/04/18 08:00 08/03/18 07:59 07/04/18 08:19 Hydralazine HCl (Apresoline) 25 mg EVERY 8 HOURS ORAL 07/01/18 22:00 07/31/18 11:44 07/05/18 06:05 Lorazepam (Ativan 2mg/ml 1ml) 0.5 mg Q4H PRN IV For Anxiety 06/29/18 14:30 07/06/18 14:29 Mirtazapine (Remeron) 15 mg BEDTIME ORAL 06/29/18 21:00 07/29/18 20:59 07/04/18 20:58 Morphine Sulfate (Morphine Sulfate) 1 mg Q4H PRN IVP For Pain 7-10 06/29/18 14:30 07/06/18 14:29 Nitroglycerin (Ntg) 0.4 mg Q5M X 3 DOSES PRN SL Prn Chest Pain 06/29/18 14:30 07/29/18 14:29 Ondansetron HCl (Zofran) 4 mg Q6H PRN IVP Nausea & Vomiting 06/29/18 14:30 07/29/18 14:29 Polyethylene Glycol (Miralax) 17 gm DAILYPRN PRN ORAL Constipation 06/30/18 17:00 07/30/18 16:59 Polyethylene Glycol (Miralax) 17 gm HSPRN PRN ORAL Constipation 06/29/18 14:30 07/29/18 14:29 07/05/18 09:39 Rivaroxaban (Xarelto) 15 mg DAILY ORAL 06/30/18 09:00 07/30/18 08:59 07/05/18 09:39 Temazepam (Restoril) 15 mg HSPRN PRN ORAL Insomnia 06/29/18 14:30 07/06/18 14:29 07/02/18 22:04 Allergies: Coded Allergies: No Known Allergies (Unverified , 06/29/18) ROS Limited/Unobtainable: No Constitutional: Reports: no symptoms HEENT: Reports: no symptoms Cardiovascular: Reports: no symptoms Respiratory: Reports: no symptoms Gastrointestinal/Abdominal: Reports: no symptoms Genitourinary: Reports: no symptoms Neurologic/Psychiatric: Reports: no symptoms Subjective 87 YO M admitted with syncope. Now sinus bradycardia. Cover for Int John-Dr Sanders. Objective Last Vital Signs Date Time Temp Pulse Resp B/P (MAP) Pulse Ox O2 Delivery O2 Flow Rate FiO2 07/05/18 10:20 97.1 99 20 95 07/05/18 09:00 Room Air Room Air 07/05/18 07:26 21 07/05/18 06:05 138/71 Laboratory Tests Test 07/05/18 06:30 White Blood Count 9.5 K/UL (4.8-10.8) Red Blood Count 5.03 M/UL (4.70-6.10) Hemoglobin 14.6 G/DL (14.2-18.0) Hematocrit 44.0 % (42.0-52.0) Mean Corpuscular Volume 87 FL (80-99) Mean Corpuscular Hemoglobin 29.0 PG (27.0-31.0) Mean Corpuscular Hemoglobin Concent 33.2 G/DL (32.0-36.0) Red Cell Distribution Width 13.7 % (11.6-14.8) Platelet Count 197 K/UL (150-450) Mean Platelet Volume 7.3 FL (6.5-10.1) Neutrophils (%) (Auto) 68.6 % (45.0-75.0) Lymphocytes (%) (Auto) 20.6 % (20.0-45.0) Monocytes (%) (Auto) 6.6 % (1.0-10.0) Eosinophils (%) (Auto) 2.8 % (0.0-3.0) Basophils (%) (Auto) 1.4 % (0.0-2.0) Sodium Level 142 MMOL/L (136-145) Potassium Level 4.2 MMOL/L (3.5-5.1) Chloride Level 107 MMOL/L (98-107) Carbon Dioxide Level 26 MMOL/L (21-32) Anion Gap 9 mmol/L (5-15) Blood Urea Nitrogen 22 mg/dL (7-18) H Creatinine 1.3 MG/DL (0.55-1.30) Estimat Glomerular Filtration Rate mL/min (>60) Glucose Level 103 MG/DL (74-106) Calcium Level 9.3 MG/DL (8.5-10.1) Intake and Output 07/04/18 07/05/18 19:00 07:00 Intake Total 360 ml 360 ml Output Total 300 ml Balance 360 ml 60 ml Intake Oral 360 ml 360 ml Output Urine Total 300 ml # Voids 2 Objective PHYSICAL EXAMINATION: GENERAL: The patient is well-developed, well-nourished white male, in no apparent distress. HEENT: Eyes, pupils are equal and responsive to light and accommodation. Extraocular movements are intact. NECK: Supple without lymphadenopathy. CHEST: Lungs are clear to auscultation bilaterally without wheezes or rales. CARDIOVASCULAR: Regular rate. S1-S2 are normal without murmurs, rubs, or gallops. ABDOMEN: Soft, nontender, nondistended. Positive bowel sounds. No evidence of hepatosplenomegaly. Currently, no rebound or guarding noted. EXTREMITIES: Negative for clubbing, cyanosis, or edema. RECTAL/GENITAL: Refused. NEUROLOGIC: Cranial II through XII are grossly intact without focal deficits. Motor strength is 5/5 bilaterally. Deep tendon reflexes are 2+ plantar. Assessment/Plan Assessment/Plan ASSESSMENT: This is an 87-year-old white male. 1. Syncopal episode. 2. Bradycardia. 3. Hypertension. 4. Parkinson disease. 5. Hypercholesterolemia. TREATMENT: 1. Syncopal episode. See Cardiology consultation with Dr. Javier. D/C bystolic. May require pacemaker 2. Hypertension. D/C Bystolic as above. 3. Parkinson disease. Continue Sinemet as above. 4. Hypercholesteremia. Continue rosuvastatin as above. 5. Pending carotid dopplers and MRI brain 6. Discharge to [facility] today Jsaon Mendez MD Jul 05, 2018 11:19
--- NOTE | 2018-07-05 11:38 | Pulmonology Progress Note ---
Assessment/Plan Problems: (1) Acute encephalopathy (2) ATN (acute tubular necrosis) (3) Cardiomegaly (4) Parkinson disease (5) Chronic anticoagulation Assessment/Plan doing better heart rate better after stopping Bystolic echocardiogram, EF 55% renal studies pending monitor heart rate neuro evaluation dvt prophylaxis. start pt/ot DC home when cleared by Cardiology Subjective ROS Limited/Unobtainable: No Constitutional: Reports: no symptoms HEENT: Repors: no symptoms Respiratory: Reports: no symptoms Allergies: Coded Allergies: No Known Allergies (Unverified , 06/29/18) Objective Last 24 Hour Vital Signs Date Time Temp Pulse Resp B/P (MAP) Pulse Ox O2 Delivery O2 Flow Rate FiO2 07/05/18 10:20 97.1 99 20 95 07/05/18 09:00 Room Air Room Air 07/05/18 08:00 97.1 99 20 95 07/05/18 07:26 77 16 Room Air 21 07/05/18 07:26 98 Room Air 21 07/05/18 07:26 Room Air 21 07/05/18 06:05 138/71 07/05/18 04:00 97.5 81 19 122/74 (90) 95 07/05/18 04:00 71 07/05/18 00:00 99.5 71 18 152/68 (96) 95 07/05/18 00:00 74 07/04/18 21:10 97 07/04/18 21:05 92 07/04/18 21:00 81 07/04/18 21:00 Room Air Room Air 07/04/18 20:58 137/70 07/04/18 20:35 Room Air 21 07/04/18 20:35 96 Room Air 21 07/04/18 20:35 73 18 Room Air 21 07/04/18 20:00 81 07/04/18 20:00 99.6 87 18 137/70 (92) 95 07/04/18 16:00 98.0 77 20 146/75 (98) 95 07/04/18 16:00 79 07/04/18 13:44 135/65 07/04/18 13:00 77 07/04/18 12:00 97.9 73 20 135/65 (88) 94 Intake and Output 07/04/18 07/05/18 18:59 06:59 Intake Total 360 ml 360 ml Output Total 300 ml Balance 360 ml 60 ml Intake Oral 360 ml 360 ml Output Urine Total 300 ml # Voids 2 General Appearance: WD/WN HEENT: normocephalic, atraumatic Respiratory/Chest: chest wall non-tender, lungs clear, normal breath sounds Cardiovascular: normal peripheral pulses, regular rhythm Abdomen: normal bowel sounds, soft, non tender Genitourinary: normal external genitalia Extremities: no clubbing Skin: no rash Laboratory Tests 07/05/18 06:30: White Blood Count 9.5, Red Blood Count 5.03, Hemoglobin 14.6, Hematocrit 44.0, Mean Corpuscular Volume 87, Mean Corpuscular Hemoglobin 29.0, Mean Corpuscular Hemoglobin Concent 33.2, Red Cell Distribution Width 13.7, Platelet Count 197, Mean Platelet Volume 7.3, Neutrophils (%) (Auto) 68.6, Lymphocytes (%) (Auto) 20.6, Monocytes (%) (Auto) 6.6, Eosinophils (%) (Auto) 2.8, Basophils (%) (Auto ) 1.4, Sodium Level 142, Potassium Level 4.2, Chloride Level 107, Carbon Dioxide Level 26, Anion Gap 9, Blood Urea Nitrogen 22H, Creatinine 1.3, Estimat Glomerular Filtration Rate , Glucose Level 103, Calcium Level 9.3 Current Medications Medications (Trade) Dose Ordered Sig/Sunni Route PRN Reason Start Time Stop Time Status Last Admin Dose Admin Acetaminophen (Tylenol) 650 mg Q4H PRN ORAL fever 06/29/18 14:30 07/29/18 14:29 Al Hydroxide/Mg Hydroxide (Mylanta II) 30 ml Q6H PRN ORAL dyspepsia 06/29/18 14:30 07/29/18 14:29 07/05/18 06:13 Albuterol/ Ipratropium (Albuterol/ Ipratropium) 3 ml Q4H PRN HHN Shortness of Breath 07/02/18 09:42 07/07/18 09:41 Carbidopa/Levodopa (Sinemet 25/100) 1 tab THREE TIMES A DAY ORAL 06/29/18 18:00 07/29/18 17:59 07/05/18 09:40 Dextrose (Dextrose 50%) 25 ml Q30M PRN IV Hypoglycemia 06/29/18 14:30 07/29/18 14:29 Dextrose (Dextrose 50%) 50 ml Q30M PRN IV Hypoglycemia 06/29/18 14:30 07/29/18 14:29 Guaifenesin (Mucinex ER) 600 mg BIDPRN PRN ORAL For Cough 07/04/18 08:00 08/03/18 07:59 07/04/18 08:19 Hydralazine HCl (Apresoline) 25 mg EVERY 8 HOURS ORAL 07/01/18 22:00 07/31/18 11:44 07/05/18 06:05 Lorazepam (Ativan 2mg/ml 1ml) 0.5 mg Q4H PRN IV For Anxiety 06/29/18 14:30 07/06/18 14:29 Mirtazapine (Remeron) 15 mg BEDTIME ORAL 06/29/18 21:00 07/29/18 20:59 07/04/18 20:58 Morphine Sulfate (Morphine Sulfate) 1 mg Q4H PRN IVP For Pain 706/29/18 14:30 07/06/18 14:29 Nitroglycerin (Ntg) 0.4 mg Q5M X 3 DOSES PRN SL Prn Chest Pain 06/29/18 14:30 07/29/18 14:29 Ondansetron HCl (Zofran) 4 mg Q6H PRN IVP Nausea & Vomiting 06/29/18 14:30 07/29/18 14:29 Polyethylene Glycol (Miralax) 17 gm DAILYPRN PRN ORAL Constipation 06/30/18 17:00 07/30/18 16:59 Polyethylene Glycol (Miralax) 17 gm HSPRN PRN ORAL Constipation 06/29/18 14:30 07/29/18 14:29 07/05/18 09:39 Rivaroxaban (Xarelto) 15 mg DAILY ORAL 06/30/18 09:00 07/30/18 08:59 07/05/18 09:39 Temazepam (Restoril) 15 mg HSPRN PRN ORAL Insomnia 06/29/18 14:30 07/06/18 14:29 07/02/18 22:04 Petey De La Torre MD Jul 05, 2018 11:38
[2018-07-05 12:00] VITALS: BP 137/75
--- NOTE | 2018-07-05 12:55 | NUR ---
patient picked up by [facility] @ about 1250. Report given to Vivian @ [facility], [place]. [phone]. RM #[id number]
--- NOTE | 2018-07-06 09:34 | Diagnostic Imaging Report ---
APPROVED REPORT CPT Code: 88000 Vascular Symptoms Syncope Doppler Spectral Velocity Analysis RightLeft BILATERAL: CCA/BULB - Imaging reveals irregular, minimal plaque in both carotid bulbs. arteries. The Doppler spectral flow analysis is within normal limits throughout the internal and external carotid arteries. VERTEBRALS - Imaging reveals both vertebral arteries to be patent, without evidence of stenosis or steal.
--- NOTE | 2018-07-06 13:13 | Consultation ---
DATE OF CONSULTATION: 07/03/2018 NOTE: POOR AUDIO NOTE: ADDENDUM: The patient's son told me that the patient has had a 20-second episode of unresponsiveness the night before. He also told me that he could see the patient's syncopal episode and the patient while walking with his walker. no evidence of tongue biting or generalized tonic-clonic activity. IMPRESSION: I still think this patient had a syncopal episode; however, also probably has minimal cognitive impairment. The patient should not be discharged and probably might be able to be discharged. I will obtain an electroencephalogram on this patient. Shaking or tremor can be seen in syncopal episodes. I guess he has either vasodepressor syncopal episode or either cardiac arrhythmia on continued cardiac monitoring by Cardiology. In fact, several weeks to months. stroke. PLAN: 1. Obtain an . 2. MRI scan of the brain. 3. The patient probably cannot be sent directly to home and will need an immediate facility for evaluation and treatment. This plan can be done by Dr. Cervantes. Larry Leavitt MD DR: DOMINGO JOB#: [id number] CC:
--- NOTE | 2018-07-06 14:36 | Discharge Summary ---
Discharge Summary Discharge Summary _ DATE OF ADMISSION: 06/29/2018 DATE OF DISCHARGE: 07/05/2018 ATTENDING MD: Dr. Billy Sanders DISCHARGED BY: Dr. Petey De La Torre CONSULTANTS: Dr. Christiano Leavitt [facility] HOSPITAL COURSE: Patient is an 87-year-old white male, who presented with chief complaint of "I passed out." Patient stated he was at home in the morning with his . He got up from the breakfast table. He felt lightheaded. He then passed out. This was witnessed by his . According to the , he was unconscious for 1 -2 minutes. He has medical history significant for hypertension, Parkinson's disease, cancer, status post resection. On evaluation at the ED, blood work did not show any leukocytosis, hemoglobin and hematocrit were stable. BUN was 25, creatinine was elevated to 1.9. Troponin was negative. ProBNP was 1600. EKG showed sinus rhythm. Chest x-ray showed a massive hiatal hernia with obscured left hemidiaphragm. CT of the head showed chronic age-related changes with an old infarct in the left pontis and low and old left pontine lacunar infarct. He was then admitted for evaluation of syncope. He underwent cardiac evaluation. Patient has a history of paroxysmal atrial fibrillation, on Xarelto. He was monitored in telemetry. Patient was bradycardic. Bystolic was discontinued to prevent further bradycardic episodes. Patient was at risk of sick sinus syndrome. Echocardiogram showed EF 55-60%. CODE STATUS was discussed with family. Patient was full code. Heart rate improved off beta-donald. She was given IV hydration and kidney function eventually improved. Renal ultrasound was negative for hydronephrosis. Both kidneys had normal echogenicity. She was eventually started on hydralazine for blood pressure control. Neuro evaluation was done. Patient was diagnosed to have cardiogenic syncopal episode. There was no evidence of a new stroke. Carotid duplex scan showed irregular minimal plaque in both carotid bulbs. Doppler spectral flow was within normal limits. Vertebral arteries were patent without any evidence of stenosis or steal. Brain MRI was negative for acute intracranial bleed, mass- effect or infarct. He was given PT and OT mobility. He was eventually [facility]. FINAL DIAGNOSES: Syncopal episode due to orthostatic hypotension Acute encephalopathy Parkinson's disease Cardiomegaly Paroxysmal atrial fibrillation on Xarelto, off Bystolic Hyperlipidemia Hypertension Dehydration Acute kidney injury, probably due to prerenal azotemia due to dehydration Prior colonic CA Old CVA Hiatal hernia DISPOSITION: [facility]. DISCHARGE MEDICATIONS: Refer to Discharge Medication List. DISCHARGE INSTRUCTIONS: May need Logan patch if neuro workup negative. I have been assigned to complete a discharge summary on this account, I was not involved with the patient's management. Sophie Adam NP Jul 06, 2018 14:36
--- NOTE | 2018-07-06 20:51 | Cardiology Report ---
APPROVED REPORT EXAM: Two-dimensional and M-mode echocardiogram with Doppler and color Doppler. INDICATION ARRHYTHMIA M-Mode DIMENSIONS IVSd1.1 (0.7-1.1cm)Left Atrium (MM)3.2 (1.6-4.0cm) LVDd4.5 (3.5-5.6cm)Aortic Root4.2 (2.0-3.7cm) PWd0.8 (0.7-1.1cm)Aortic Cusp Exc.1.6 (1.5-2.0cm) IVSs1.1 cm LVDs2.9 (2.5-4.0cm) PWs1.1 cm Technically difficult study due to poor acoustical windows. Normal left ventricular chamber size, systolic function and wall motion to extent visualized. Left ventricular ejection fraction estimated to be 55-60 %. Mild left ventricular hypertrophy by 2-D. Anterior Echo-free space, may be due to pericardial fat or effusion. All other cardiac chamber sizes are within normal limits. Focal aortic valve sclerosis with adequate cusp excursion. Thickened mitral valve leaflets with normal excursion. Mitral annulus and aortic root calcification. Pulmonic valve not well visualized. Normal tricuspid valve structure. IVC at normal size with physiologic collapse . A color flow and spectral Doppler study was performed and revealed: Mild aortic regurgitation. Trace mitral regurgitation. Mitral diastolic velocities suggest reduced left ventricular relaxation c/w mild LV diastolic dysfunction (Grade I ). Mild tricuspid regurgitation. Tricuspid systolic velocities suggests peak right ventricular systolic pressure of 39 mmHg,consistent with mild pulmonary hypertension.
== END 2018-07-05 13:30 | disposition short-term general hospital (02) | DRG 312 ==
LOC: EDBD 11:59 → EMR 12:34 → 2E 13:39 → EDBEDREQ 14:23 → 2E 15:54
DX: I95.1 Orthostatic hypotension (principal); N17.0 Acute kidney failure with tubular necrosis; G93.40 Encephalopathy, unspecified; E86.0 Dehydration; R00.1 Bradycardia, unspecified; G20 Parkinson's disease; I10 Essential (primary) hypertension; Z85.038 Personal history of other malignant neoplasm of large intestine; Z90.49 Acquired absence of other specified parts of digestive tract; K44.9 Diaphragmatic hernia without obstruction or gangrene; I48.0 Paroxysmal atrial fibrillation; Z79.01 Long term (current) use of anticoagulants; E78.5 Hyperlipidemia, unspecified; G31.84 Mild cognitive impairment of uncertain or unknown etiology
CPT/HCPCS: 36415; 70450; 70551; 71045; 76770; 80048; 80053; 80061; 81001; 81003; 82043; 82550; 82553; 82570; 83880; 84133; 84300; 84439; 84443; 84484; 84550; 85025; 85610; 85730; 89050; 93005; 93306; 93880; 94664; 94760; 99285; J8499